=== PATIENT | male | born 1965 | race Caucasian/White ===

== ENCOUNTER 2017-04-15 12:22 | Inpatient (IN) | payer OTHER ==
[~2017-04-15] VITALS: Ht 185.4 cm; Wt 86.8 kg
[~2017-04-15 12:22] MED LIST: ALBU18HF INH; ASPI325T32 PO; ATOR40TA69 PO; BECL8.7A5 INH; BUPR100T15 PO; CLOP75TA28 PO; FLUO20CA25 PO; IPRA4AER INH; METO25TA6 PO; NITR0.4T6 SL; PANT40TA3 PO; PRAZ2CAP2 PO; SUCR1TAB PO
[2017-04-15 12:27] VITALS: BP 110/75; PULSE 92; RESP 18; O2SAT 98
--- NOTE | 2017-04-15 12:38 | ED.REPORT ---
HPI-Abd Pain M 40 and Over Date of Service Apr 15, 2017 ED Provider: Daren Ma MD Pt is a 51 year old male with a hx of COPD, emphysema, CAD, MRSA presenting to the ED from complaining of abdominal pain and fever onset this morning. He also complains of pain and burning on the left side of his thigh near the groin , which he reports is from something biting him last night. Denies any nausea, or any other symptoms at this time. Nursing Notes Stated Complaint: BELLY PAIN/FEVER Chief Complaint: General Complaint Nursing Notes Reviewed: Yes Allergies: Coded Allergies: No Known Allergies (Verified Allergy, Unknown, 02/18/16) Scheduled Albuterol/Ipratropium (Combivent Respimat Inhal [place]) 120 Spr/4 Gm Inhaler 1 PUFF INH QID prn also, not more than 6 puffs daily Atorvastatin Calcium (Atorvastatin Calcium) 80 Mg Tablet 80 MG PO DAILY Fluticasone/Vilanterol (Breo Ellipta 100-25 Mcg INH) 1 Each Aer.pow.ba 1 PUFF INHALATION DAILY Metoprolol Succinate ER (Metoprolol Succinate ER) 25 Mg Tab.er.24h 12.5 MG PO DAILY Pantoprazole DR (Pantoprazole DR) 40 Mg Tablet.dr 40 MG PO BID Prazosin (Prazosin) 2 Mg Capsule 2 MG PO DAILY Umeclidinium [place] (Incruse Ellipta) 62.5 Mcg/Actuation Blst.w.dev 1 PUFF INHALATION DAILY Scheduled PRN Albuterol Sulfate (Ventolin HFA Inhaler) 200 Puff/18 Gm Inhaler 2 PUFF INH Q4 PRN PRN For Wheezing Epinephrine (Epipen 2-Buzz) 0.3 Mg/0.3 Ml Auto.injct 0.3 ML INJ DIRECTED PRN PRN For Anaphyllaxis Nitroglycerin SL (Nitroglycerin SL) 0.4 Mg Tab.subl 0.4 MG SL Q5MIN PRN PRN For Chest Pain General Time Seen by MD: 12:37 Chief Complaint Abdominal pain Hx Obtained From: Patient Arrived By: Walk-in Sudden in Onset?: No Onset Occurred: 1 - 4 hours ago Symptom Duration: Since onset Progression since Onset: Constant Location: : Pelvis Quality: Painful Severity: Current: Severe Severity: Maximum: Severe Recent Healthcare: No recent doctor visit, No recent hospitalization Similar Sx Previous: No Past Medical History Past Medical History Myocardial Infarction MRSA Reports: Asthma, COPD, Coronary artery disease, GERD, Hyperlipidemia, Hypertension Past Surgical History neck surgery cardiac stent Smoking History Current Every Day Smoker Social History Alcohol Use: In recovery Drug Use: In recovery, Cocaine Other Social History: Good social support, Homeless Ambulatory Status Independent Review of Systems Constitutional: Reports: Fever, Denies: Chills Respiratory: Denies: Non-productive cough GI: Reports: Abdominal pain, Denies: Nausea, Vomiting Complete sys rev & neg: except as marked. Skin: Reports Rash, Reports Swelling Physical Exam Initial Vital Signs Vital Signs (First) Date Time Temp Pulse Resp B/P Pulse Ox O2 Delivery O2 Flow Rate FiO2 04/15/17 12:27 37.9 92 18 110/75 98 Room Air Initial VS: Reviewed Head / Eyes: Atraumatic, Normocephalic, PERRL ENT: Mucous membranes moist, Conjunctiva normal, No scleral icterus Extremities: Vascular intact, Neuro intact, No swelling, No tenderness Neurologic: Alert, Oriented, Nonfocal Psychiatric: Mood/affect normal, Behavior normal, Normal thought content General/Constitutional: Awake, Alert, No acute distress, Well appearing Respiratory / Chest: Breath sounds NL, Breath sounds = bilat, No respiratory distress, No rales, No rhonchi, No wheezing Cardiovascular: Heart rate NL, Regular rhythm, Heart sounds NL, Peripheral circulation NL Abdomen: Atraumatic, Soft, Non-tender Skin: Warm, Dry Erythematous tender mass left inguinal ligament. Scrotum not involved. Interpretation & Diagnostics Lab Results Interpretation Result Diagram: 04/15/17 1313 04/15/17 1313 Test 04/15/17 13:13 04/15/17 16:05 White Blood Count 10.8th/mm3 (3.8-10.1) Red Blood Count 4.93mil/mm3 (4.40-5.80) Hemoglobin 15.4g/dL (13.8-17.2) Hematocrit 45.1% (41.0-50.0) Mean Corpuscular Volume 91.5fL (81-100) Mean Corpuscular Hemoglobin 31.2pg (27.0-35.0) Mean Corpuscular Hemoglobin Concent 34.1% (32.0-37.0) Red Cell Distribution Width 13.9% (12.3-15.4) Platelet Count 239bil/L (150-400) Neutrophils (%) (Auto) 75.7% (40-74) Lymphocytes (%) (Auto) 13.4% (14-46) Monocytes (%) (Auto) 9.1% (4-12) Eosinophils (%) (Auto) 1.5% (0-5) Basophils (%) (Auto) 0.2% (0-3) Hold Purple Top Tube Received (Received) Hold Blue Top Tube Received (Received) Sodium Level 136mEq/L (134-144) Potassium Level 3.6mEq/L (3.5-5.2) Chloride Level 98mEq/L (97-108) Carbon Dioxide Level 21mmol/L (18-29) Blood Urea Nitrogen 16mg/dL (6-24) Creatinine 0.85mg/dL (0.76-1.27) Estimat Glomerular Filtration Rate 100mL/min (>59) Glucose Level 90mg/dL (60-99) Calcium Level 9.9mg/dL (8.5-10.1) Total Bilirubin 0.7mg/dL (0.0-1.2) Aspartate Amino Transf (AST/SGOT) 19U/L (0-50) Alanine Aminotransferase (ALT/SGPT) 18U/L (0-44) Alkaline Phosphatase 71U/L (25-150) Total Protein 7.1g/dL (6.4-8.4) Albumin 4.1g/dL (3.4-5.0) Hold Edson Top Tube Received (Received) Lactic Acid Level 0.8mmol/L (0.4-2.0) ECG Interpretation Time: 15:52 Interpreted by: ED physician Normal ECG Interpretation: Normal ECG w/ rate of... (91), Normal sinus rhythm X-Ray Chest Interpretation Chest Xray Interpretation: IMPRESSION: Negative chest. No acute cardiopulmonary process is evident. Dictated by: Saravanan Rosado M.D. on 04/15/2017 at 14:53 View: Portable, 1 view Interpretation / Wet Read by: Interpret - Radiologist Re-Eval/Medical Decision Time of Eval: 15:22 Patient Status: Condition improved Re-Evaluation/Progress Note: Used bedside ultrasound to visualize the erythematous area. No abscess visualized. He denies using any opiates. Discussed plan for admission. Pt understands and agrees with plan. 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: Will see patient, Agrees with plan, Accepts admit Counseled Regarding: Diagnosis, Lab results, Need for follow-up, When/why to return to ED Discharge & Departure Primary Impression: Soft tissue infection Disposition: ADMITTED TO HOSPITAL Vital Signs - All Vital Signs Date Time Temp Pulse Resp B/P Pulse Ox O2 Delivery O2 Flow Rate FiO2 04/15/17 16:22 37.1 94 20 95/61 94 Room Air 04/15/17 13:54 37.8 94 20 107/62 95 Room Air 04/15/17 12:27 37.9 92 18 110/75 98 Room Air )( All Prior VS Reviewed: Yes Condition: Improved Referrals: Varinder Díaz DO (PCP) Julio Attestation Portions of this note were transcribed by Tiffany Albert. I, Dr. Ma personally performed the history, physical exam and medical decision-making; I reviewed and confirmed the accuracy of the information in the transcribed note. Signed by: Julio Chamberlain, 04/15/2017 at 1800. copies to: Varinder Díaz Kirk H MD Apr 15, 2017 12:38 TIFFANY ALBERT Apr 15, 2017 12:43
[2017-04-15 13:54] VITALS: BP 107/62; PULSE 94; RESP 20; O2SAT 95
[2017-04-15] MEDS ORDERED: 0.9% Sodium Chloride 1,000 ML IV ONE ×2 (15:26→16:45)
[2017-04-15] MEDS ORDERED: Vancomycin Dose per Pharmacist XX ONE (15:30)
[2017-04-15] MEDS ORDERED: levoFLOXacin Inj 750 MG in IV Premix 1 EACH IV ONE (15:30)
[2017-04-15] MEDS ORDERED: Piperacillin-Tazo 3.375 Gm Inj 3.375 GM in Dextrose 5% Minibag Plus 50 ML IV ONE (15:30)
[2017-04-15] MEDS ORDERED: oxyCODONE-Acetamin 10-325 mg Tablet PO ONE (15:30)
[2017-04-15 15:36] LABS: BASOPHILS % (AUTO) 0.2 % (0-3); EOSINOPHILS % (AUTO) 1.5 % (0-5); MONOCYTES % (AUTO) 9.1 % (4-12); Mean Corpuscular Hemoglobin 31.2 pg (27.0-35.0); Mean Corpuscular Volume 91.5 fL (81-100); NEUTROPHILS % (AUTO) 75.7 % (40-74); Platelet Count 239 bil/L (150-400)
--- NOTE | 2017-04-15 16:07 | DRSVH ---
PROCEDURE: X-RAY CHEST ONE VIEW, PORTABLE ([id number]) INDICATIONS: fever TECHNIQUE: One view of the chest was acquired. COMPARISON: [facility], , CHEST 1VW (PORTABLE), 04/30/2014, 11:51. FINDINGS: Surgical changes and devices: Postoperative changes are present involving the lower cervical spine. Lungs and pleura: No pleural effusions or pneumothorax. Lungs are clear. Mediastinum: Mediastinal contours appear normal. Heart size is normal. Bones and chest wall: No suspicious bony lesions. Overlying soft tissues appear unremarkable. IMPRESSION: Negative chest. No acute cardiopulmonary process is evident. Dictated by: Saravanan Rosado M.D. on 04/15/2017 at 14:53 Approved by: Saravanan Rosado M.D. on 04/15/2017 at 15:05
[2017-04-15] MEDS ORDERED: ATOR80TA77 PO (16:17)
[2017-04-15] MEDS ORDERED: METO25TA99 PO (16:17)
[2017-04-15] MEDS ORDERED: EPIN0.3P2 INJ (16:17)
[2017-04-15] MEDS ORDERED: FLUT1AER INHALATION (16:17)
[2017-04-15] MEDS ORDERED: UMEC62.5 INHALATION (16:17)
[2017-04-15] MEDS ORDERED: Vancomycin Inj 1,750 MG in 0.9% Sodium Chloride 500 ML IV ONE (16:20)
[2017-04-15 16:22] VITALS: BP 95/61; PULSE 94; RESP 20; O2SAT 94
[2017-04-15] MEDS ORDERED: Alum-Mag Hydrox-Simeth 30 mL Suspension PO PRN (17:45)
[2017-04-15] MEDS ORDERED: Ondansetron 2 mg/mL 2 mL Inj IVPUSH PRN (17:45)
[2017-04-15 17:48] VITALS: BP 103/62; PULSE 82; RESP 20; O2SAT 96
[2017-04-15 18:05] LABS: APPEARANCE,URINE CLEAR (CLEAR,HAZY); COLOR,URINE DARK YELLOW (YELLOW); OCCULT BLOOD,URINE NEGATIVE (NEGATIVE); UROBILINOGEN,URINE 2 mg/dL (NORMAL)
--- NOTE | 2017-04-15 18:15 | NUR ---
per RN the vitals were taken just before arrival to the unit, were stable and to be checked on first round of assembler 1st shift. Addendum: 04/16/17 at 0804 by STEVEN GUERRERO CNA Amended: Links added.
[2017-04-15] MEDS ORDERED: Polyethylene Glycol (PEG) 17 Gm Powder PO PRN (18:20)
[2017-04-15] MEDS: Vancomycin Dose per Pharmacist XX SCH (18:25)
--- NOTE | 2017-04-15 18:48 | NUR ---
Admit Pt arrived to [facility] floor at 1814. Pain controlled in ED with Percocet and Tylenol. No c/o N/V. Blood, MRSA, and UA cultures pending. History of MRSA. IV Vanco running.
--- NOTE | 2017-04-15 19:00 | HP ---
[address] [address] HISTORY AND PHYSICAL PATIENT: ANDREW HEIN : 1965 MR#: [id number] ADMIT: 04/15/2017 JOB ID: [id number] PRIMARY CARE PROVIDER: Varinder Díaz DO. Patient admitted from ED, inpatient status, Red team. CHIEF COMPLAINT: Redness, left inguinal area. HISTORY OF PRESENT ILLNESS: This is a homeless, 51-year-old male who noted redness to his left inguinal area. He also noted a little lesion on his left thumb and right middle finger. The patient does have a history of MRSA. He denies any trauma to any of these areas and while he is abusing cocaine again, he denies any needles or injections at all at this time. He has had some fevers and chills today and tells me it looked all fine yesterday. He did not notice anything. No chest pain, nausea, vomiting, diarrhea, or abdominal pain. REVIEW OF SYSTEMS: Complete review of systems obtained. All pertinent positives as per HPI above, rest of review of systems are negative. PAST MEDICAL HISTORY: 1. COPD. 2. Sciatica. 3. GERD. 4. Hypertension. 5. History of [place], specifics not known. MEDICINES: 1. Ventolin inhalers p.r.n. 2. Combivent inhaler p.r.n. 3. EpiPen for bee stings. 4. Incruse Ellipta inhaler 2. 5. Breo Ellipta inhaler p.r.n. 6. Lipitor 80 daily. 7. Metoprolol succinate 12.5 daily. 8. Nitroglycerin p.r.n. chest pain. 9. Prazosin 2 mg daily. 10. Pantoprazole 40 mg daily. ALLERGIES: None. SOCIAL HISTORY: Is currently homeless, living in his car. He does smoke cigarettes. Denies any alcohol use. He has again relapsed and is using cocaine. Denies any needle use at this time. FAMILY HISTORY: Both mother and father of myocardial infarctions. PHYSICAL EXAMINATION: Temperature 37.8, blood pressure 107/62, O2 sats 94% on room air. Pulse 94. The patient is alert, uncomfortable but not in acute distress. Skin is warm and dry. He has a cellulitic process in the left inguinal area and a small focus in the middle of this without an obvious drainable focus there. This spreads out laterally, superiorly, inferiorly, and medially, and I have with black ink marked those margins. It is about 3-4 inches across the reddened area. On his left thumb and right middle finger, he has small raised red bump on both of those areas without drainage. Otherwise, the skin is warm and dry. Eyes are PERRLA. EOM intact. Mouth shows adequate hydration. No lesions. Cardiac is regular with no obvious murmur but difficult to hear in the ED. Lungs clear anteriorly with a few bibasilar rales heard posteriorly. Abdomen is soft, nonacute, and benign. Extremities showed no edema. Cranial nerves 2-12 are intact. No gross motor or sensory defects noted. DIAGNOSIS: 1. Acute cellulitis, left inguinal area, present on admission. Active. Will continue with the Levaquin, vancomycin started in the ED. Will get a nasal MRSA screen. I have applied ink zavaleta to the margins of this area. Blood cultures are pending. Will review in the morning. 2. Chronic obstructive pulmonary disease present on admission. Stable. Continue with patient's nebulizers and monitor closely. 3. Hypertension, present on admission. Stable. Continue with patient's metoprolol succinate and prazosin. 4. Coronary artery disease. Present on admission. Stable. Will continue with patient's metoprolol and Lipitor, p.r.n. nitroglycerin, and prazosin. 5. Gastroesophageal reflux disease present on admission. Stable. Continue patient's Protonix. 6. Substance abuse with cocaine present on admission. Active. Will request Social Service consultation. 7. Tobacco use disorder. Present on admission. Active. Will provide patient a nicotine patch. He has been counseled to quit smoking. The patient is being admitted to inpatient status, with expected length of stay greater than two midnights due to severity of presentation, duration of treatment and risk of adverse events. CODE STATUS: FULL CODE.
[2017-04-15 20:35] VITALS: BP 95/59; PULSE 82; RESP 16; O2SAT 95
[2017-04-15] MEDS: Alum-Mag Hydrox-Simeth 30 mL Suspension PO PRN (22:54)
[2017-04-15] MEDS: Ondansetron 2 mg/mL 2 mL Inj IVPUSH PRN (23:04)
[2017-04-15] MEDS: HYDROcodone-APAP 5-325 mg Tablet PO PRN (23:10)
[2017-04-16 00:13] VITALS: BP 104/66; PULSE 85; RESP 19; O2SAT 99
[2017-04-16] MEDS: Heparin 5,000 Unit/mL Inj SUBQ SCH ×4 (01:15→23:27)
--- NOTE | 2017-04-16 03:41 | NUR ---
Vomiting/Heartburn Pt. c/o heartburn, nausea and had brownish emesis a couple of times, MD aware, given prn maalox and IV zofran and norco for general pain, pt. started feeling better approx 0200 and was able to fall asleep, tolerating po intake and encouraged fluids, notable coughing with no secretions reported, VSS and afebrile, started on IV vanco, UA and blood culture still pending, hourly rounds, monitored closely, call light in reach at all times.
[2017-04-16 05:36] VITALS: BP 105/75; PULSE 93; RESP 18; O2SAT 94
[2017-04-16] MEDS: Vancomycin Inj 1,500 MG in 0.9% Sodium Chloride 500 ML IV SCH ×2 (05:36→20:10)
[2017-04-16] MEDS ORDERED: 0.9% Sodium Chloride 100 ML ONE ×2 (05:41→09:14)
[2017-04-16 06:19] LABS: BASOPHILS % (AUTO) 0.2 % (0-3); EOSINOPHILS % (AUTO) 1.2 % (0-5); MONOCYTES % (AUTO) 10.3 % (4-12); Mean Corpuscular Hemoglobin 30.4 pg (27.0-35.0); Mean Corpuscular Volume 93.4 fL (81-100); NEUTROPHILS % (AUTO) 74.4 % (40-74); Platelet Count 191 bil/L (150-400)
--- NOTE | 2017-04-16 07:23 | PCM.PNMED ---
Subjective Date of Service Apr 16, 2017 Subjective Did pretty well overnight, did have some heart burn, we need to order his protonix. Behavior OK per nursing. Exam Vital Signs Vital Sign - Last Date Time Temp Pulse Resp B/P Pulse Ox O2 Delivery O2 Flow Rate FiO2 04/16/17 05:36 36.9 93 18 105/75 94 Room Air Intake and Output 04/15/17 04/15/17 04/16/17 Cumulative From/Thru 15:00 23:00 07:00 04/15/17 12:27 - 04/16/17 06:26 Intake Total 3134 ml 636 ml 3770 ml Output Total 800 ml 800 ml Balance 3134 ml -164 ml 2970 ml Intake Oral 636 ml 636 ml 1272 ml IV Total 2498 ml 2498 ml Output Urine Total 600 ml 600 ml Emesis 200 ml 200 ml # Voids 1 1 Exam Skin; Left groin cellulitic area little less red and angre with possible central area developing small drainable abscess. The erythema did extend a bit beyond the ink zavaleta applied yesterday, new ink zavaleta applied today. No purulence noted. CV; nu murmur Resp; corse otherwise clear GI; soft non acute benign extremities; L thumb and R middle finger lesions dry and healing, no drainage.( 5 mm bump raised) Lab and Diagnostics Result Diagram: 04/16/1752804/16/17528 Assessment & Plan 1. Acute cellulitis, left inguinal area, present on admission. Improving. -for now continue with Vancomycin (day 2) and change the levaquin to ceftriaxone (day 1) -nasal MRSA screen negative. -I have applied ink zavaleta to the margins of this area yesterday and today -Blood cultures are pending. 2. Chronic obstructive pulmonary disease present on admission. Stable. -Continue with patient's nebulizers and monitor closely. 3. Hypertension, present on admission. Stable. -Continue with patient's metoprolol succinate and prazosin. 4. Coronary artery disease. Present on admission. Stable. -continue with patient's metoprolol and Lipitor, p.r.n. nitroglycerin, and prazosin. 5. Gastroesophageal reflux disease present on admission. Stable. -resume patient's Protonix. 6. Substance abuse with cocaine present on admission. Active. -request Social Service consultation. 7. Tobacco use disorder. Present on admission. Active. -provide patient a nicotine patch. -has been counseled to quit smoking. Idania Mallory MD Apr 16, 2017 07:23
[2017-04-16] MEDS: Vancomycin Dose per Pharmacist XX SCH (08:30)
[2017-04-16] MEDS: Pantoprazole 20 mg ER24 Tablet PO SCH (09:17)
[2017-04-16] MEDS: cefTRIAXone Inj 2,000 MG in Dextrose 5% Minibag Plus 50 ML IV SCH (09:17)
--- NOTE | 2017-04-16 10:04 | NUR ---
Car Patient's car at Urgent care. Security notified. 2017 Rashid Watson G4 Blue with broken passenger window.
[2017-04-16] MEDS: Alum-Mag Hydrox-Simeth 30 mL Suspension PO PRN (10:24)
--- NOTE | 2017-04-16 10:25 | NUR ---
Heartburn Patient reported heartburn. Maalox given. Patient requesting TUMS. Patient repositions self for comfort. Call light and tray table within reach. Will continue to monitor patient hourly.
[2017-04-16 12:43] VITALS: BP 113/72; PULSE 84; RESP 19; O2SAT 98
[2017-04-16] MEDS: Ondansetron 2 mg/mL 2 mL Inj IVPUSH PRN (12:48)
[2017-04-16] MEDS: HYDROcodone-APAP 5-325 mg Tablet PO PRN ×2 (13:05→18:43)
--- NOTE | 2017-04-16 15:45 | NUR ---
Social Work- Initial Assessment/Multi-Disciplinary Rounds Data: EMR reviewed. Pt is a 51 year old male admitted 04/15/17 for inguinal cellulitis per H&P. Pt's PCP is Varinder Díaz DO. Pt's insurance is [employer]. Pt's NOK is Priyanka Aranda, . Pt's readmit risk score is 2 low risk. Per multi-disciplinary rounds, pt will require abx at discharge. It is unclear whether this will be IV or PO. SW recommends that pt receive PO abx. SW asked to see pt due to homelessness and cocaine use. SW met with pt at bedside regarding discharge plan. Pt alert and oriented x3. Pt's capacity for self-care assessed. Pt is able to work and able to drive. Pt has history of employment and is clearly knowledgeable regarding existing resources in [facility]. Pt was able to coordinate and complete his own inpt treatment assessment. Pt is capable of self care, even if he does not have the resources at this time. Pt is currently homeless and living in his car. Pt has a history of cocaine use. Pt recently relapsed after his relationship ended. Prior to this, pt was sober for three years. Pt completed inpt treatment at [facility] 3 years ago. 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 Pt reports a few days of employment at [employer] but pt reports that he wasn't able to hold a job there. Pt declined conversation with CDP here at [facility] as he has already completed an inpt treatment assessment and is waiting for a bed date. He has been trying to enter inpt treatment at [facility] in [place], [place]. Pt was supposed to contact [facility] but then he was hospitalized. ANTONIO connected [facility] to the phone in pt's room for pt to check on his bed date. Pt reports that he will get a bus voucher from [employer] or he will drive himself to inpt treatment if he can get gas. Pt appears very knowledgeable regarding services. ANTONIO worked to problem solve with pt regarding obtaining pt's abx or other necessary medications at discharge. Pt reports that he has no money and the only way he would be able to obtain his prescriptions is if they were 100% covered by [employer]. Pt reports that he gets $100 from [employer] funds each month. Pt reports that this is his only income at this time. Pt reports that his credit cards are maxed out. Pt denies that his sister would be able to provide any money. SW discussed $4 medication list from [facility]. Pt states he can't afford it. Pt denies that his sister would want to loan him $4. Pt states that he doesn't have friends that would be willing to loan or give him any money. Pt again denies that he has any money available in his bank account. Pt anticipated to discharge back to his car with an eventual bed date. ANTONIO recommends PO abx at discharge if able. SW will continue to follow. Assessment: Pt who is independent at baseline and is currently homeless. Plan: Pt is working on obtaining a bed date at [facility]. Pt states that funds are a major concern and he would not have money for prescriptions at discharge. ANTONIO will continue to work with pt regarding funding options. Pt anticipated to discharge back to his car with an eventual bed date at [facility]. ANTONIO recommends PO abx at discharge if able. SW will continue to follow. MORGAN Barakat Addendum: 04/16/17 at 1602 by CARRIE ALFONSO SS Amended: Links added.
[2017-04-16 16:07] VITALS: BP 94/59; PULSE 84; RESP 16; O2SAT 95
[2017-04-16] MEDS ORDERED: levoFLOXacin Inj 750 MG in IV Premix 1 EACH IV SCH (17:00)
[2017-04-16 20:27] VITALS: BP 104/68; PULSE 86; RESP 16; O2SAT 93
[2017-04-16] MEDS: Albuterol-Ipratropium 3 mL Inhalation Solution NEB SCH (21:16)
[2017-04-16 21:17] VITALS: PULSE 83; RESP 18; O2SAT 94
--- NOTE | 2017-04-16 22:38 | NUR ---
INTEG; C/o groin area pain. States pain rx brings pain down and "then it's right back". Area red swollen and painful.
[2017-04-17] MEDS: HYDROcodone-APAP 5-325 mg Tablet PO PRN ×6 (02:02→23:14)
[2017-04-17] MEDS ORDERED: 0.9% Sodium Chloride 100 ML ONE (02:17)
[2017-04-17 04:26] VITALS: BP 99/57; PULSE 76; RESP 16; O2SAT 95
[2017-04-17] MEDS ORDERED: Albuterol 2.5 mg/3 mL Inhalation Solution NEB PRN (07:00)
[2017-04-17] MEDS: Albuterol-Ipratropium 3 mL Inhalation Solution NEB SCH ×2 (08:19→11:00)
[2017-04-17 08:20] VITALS: PULSE 79; RESP 16; O2SAT 98
[2017-04-17] MEDS: Vancomycin Dose per Pharmacist XX SCH (08:30)
[2017-04-17] MEDS: Heparin 5,000 Unit/mL Inj SUBQ SCH ×3 (10:08→23:15)
[2017-04-17] MEDS: Pantoprazole 20 mg ER24 Tablet PO SCH (10:09)
[2017-04-17] MEDS: cefTRIAXone Inj 2,000 MG in Dextrose 5% Minibag Plus 50 ML IV SCH (10:25)
[2017-04-17] MEDS: Vancomycin Inj 1,500 MG in 0.9% Sodium Chloride 500 ML IV SCH ×2 (10:25→22:23)
[2017-04-17] MEDS ORDERED: Albuterol-Ipratropium 120 Spray 4 Gm Inhaler INHALATION SCH (11:30)
--- NOTE | 2017-04-17 12:00 | NUR ---
Respiratory Pt declined Tx at this time. Stated he does not want scheduled neb's, he wants inhaler prn. Pt stated he will call if prn neb is wanted.
[2017-04-17 13:04] VITALS: BP 108/69; PULSE 78; RESP 18; O2SAT 95
[2017-04-17] MEDS: Fluticasone-Salmererol 250-50 Inhaler INHALATION SCH ×2 (13:39→20:21)
[2017-04-17] MEDS: MeTOProlol XL 25 mg ER24 Tablet PO SCH (13:40)
--- NOTE | 2017-04-17 15:08 | CONS ---
[address] [address] CONSULTATION REPORT PATIENT: ANDREW HEIN : 1965 MR#: [id number] ADMIT: 04/15/2017 JOB ID: [id number] DATE OF SERVICE: 04/17/2017 CHIEF COMPLAINT/IDENTIFICATION: Dr. Rodrigues has asked me to see this man regarding possible left groin abscess. HISTORY OF PRESENT ILLNESS: The patient presented to the emergency department yesterday complaining of pain from insect bites on his fingers as well as on his left inguinal area. In the emergency department he was evaluated with an ultrasound to look for an abscess and no abscess was found. He was admitted on IV antibiotics and I am asked to see him regarding taking him to the OR for surgical drainage. PAST MEDICAL HISTORY: Per admission history and physical he has a history of COPD, sciatica, GERD, hypertension, [place], active cocaine abuse, and MRSA. MEDICATIONS: None as per admission physical. SOCIAL HISTORY: Living in his car, smokes cigarettes, negative daily alcohol use. FAMILY HISTORY: Noncontributory. REVIEW OF SYSTEMS: Noncontributory. PHYSICAL EXAMINATION: Vital signs recorded in the chart. Within normal limits. Directed examination shows erythema in the right groin, previously marked yesterday evening by Dr. Mallory. Along the inguinal crease there is a raised erythematous tender area. I do not appreciate fluctuance. According to the patient this appears similar to what it did last night. LABORATORY DATA: White count was 11.5 yesterday. IMPRESSION AND PLAN: Clinically this appears to be a soft tissue infection but at this point, given the negative ultrasound and the examination, I do not think there is anything to be drained surgically. I would continue intravenous antibiotics. General Surgery will follow him and if in another day or two we are not seeing marked improvement re-imaging looking for a drainable abscess would be appropriate.
--- NOTE | 2017-04-17 18:23 | NUR ---
cellulitis area of erythema has continued to spread some though out shift, and now there is a pustule visible. pt remains afebrile. VSS. good appetite
--- NOTE | 2017-04-17 19:01 | PCM.PNMED ---
Subjective Date of Service Apr 17, 2017 Subjective The patient continues to complain of pain and swelling in the left inguinal area. He states that it does not feel any better. He has no other new complaints. Exam Vital Signs Vital Sign - Last Date Time Temp Pulse Resp B/P Pulse Ox O2 Delivery O2 Flow Rate FiO2 04/17/17 13:04 36.7 78 18 108/69 95 Room Air Intake and Output 04/16/17 04/16/17 04/17/17 Cumulative From/Thru 15:00 23:00 07:00 04/15/17 12:27 - 04/17/17 05:30 Intake Total 707 ml 1344 ml 857 ml 6678 ml Output Total 1875 ml 700 ml 3375 ml Balance 707 ml -531 ml 157 ml 3303 ml Intake Oral 1344 ml 857 ml 3473 ml IV Total 707 ml 3205 ml Output Urine Total 1875 ml 700 ml 3175 ml Emesis 200 ml # Voids 3 4 Exam General: Patient is lying in bed in minimal distress if he is not moving. However, his left inguinal area is extremely tender with any contact or movement. HEENT: Head is atraumatic and normocephalic. Eyes: Pupils are equally round and reactive to light and accommodation. Extraocular muscles are intact. Sclera are white, anicteric. Subconjunctival mucosa is pink. Ears and nose are unremarkable. Oropharynx: There is no mucosal lesions, there is no thrush, there is no pharyngitis. Neck: Is supple, there are no nodes, or masses or tenderness. Chest: Is clear to auscultation and percussion. There are no rales, rhonchi, wheezes or rubs. Heart: Rate, rhythm is regular. There is no murmur, rub or gallop. Abdomen: Good bowel sounds are present. Abdomen is soft, nontender, no organomegaly or masses were appreciated. Extremities: There is an area of fluctuant mass in the left inguinal area which is exquisitely tender with any palpation. The area of cellulitis has not receded, however it also has not worsened. Neurologic: There are no focal neurological deficits. Cranial nerves II through XII are intact. There are no sensory or motor deficits. Psychiatric: Patients mood is calm and shows no sign of agitation. Genital: Deferred Rectal: Deferred Lab and Diagnostics Result Diagram: 04/16/1752804/16/17528 Microbiology Urine and blood cultures are negative to date Name: ANDREW HEIN Age/Sex: 51/M Attend Dr: Perfecto Rodrigues Acct: [id number] Unit: [id number] Status: ADM IN Location: [facility] [place] 1006-1 Re04/15/17 Disch: Specimen: [id number] Collected: 04/16/17 Status: PARVIZ Req#: [id number] Received: 04/17/17 Source: STOOL Sp Desc : Subm Dr: Idania Mallory MD Ordered: Trena PACHECO DNA PCR Comments: Collected by Nurse/Unit? Y/N Y Procedure Result Verified Site Microbiology SEGUNDO C DIF PCR STOOL Final 04/17/17-649 CDIF DNA BY PCR NEGATIVE REFERENCE INTERVAL NEGATIVE Name: ANDREW HEIN Age/Sex: 51/M Attend Dr: Idania Mallory Acct: [id number] Unit: [id number] Status: ADM IN Location: [facility] [place] 1006-1 Re04/15/17 Disch: Specimen: [id number] Collected: 04/15/17 Status: COMP Req#: [id number] Received: 04/15/17 Source: NOSE Sp Desc : Subm Dr: Idania Mallory MD Ordered: SEGUNDO MRSA PCR Comments: Collected by Nurse/Unit? Y/N Y Procedure Result Verified Site Microbiology SEGUNDO MRSA PCR Final 04/15/17-2237 MRSA BY PCR NOT DETECTED REFERENCE INTERVAL NOT DETECTED X-Rays, CTs and MRIs PROCEDURE: X-RAY CHEST ONE VIEW, PORTABLE ([id number]) INDICATIONS: fever TECHNIQUE: One view of the chest was acquired. COMPARISON: [facility], , CHEST 1VW (PORTABLE), 04/30/2014, 11:51. FINDINGS: Surgical changes and devices: Postoperative changes are present involving the lower cervical spine. Lungs and pleura: No pleural effusions or pneumothorax. Lungs are clear. Mediastinum: Mediastinal contours appear normal. Heart size is normal. Bones and chest wall: No suspicious bony lesions. Overlying soft tissues appear unremarkable. IMPRESSION: Negative chest. No acute cardiopulmonary process is evident. Dictated by: Saravanan Rosado M.D. on 04/15/2017 at 14:53 Approved by: Saravanan Rosado M.D. on 04/15/2017 at 15:05 Assessment & Plan The patient is a 51-year-old homeless white male who has been sleeping in his automobile when he noticed in 1 day redness and swelling developing on his left thumb, right middle finger and left inguinal area. He denied any trauma to these areas and denies using intravenous drugs. He does admit to using and abusing cocaine which may or may not have methamphetamine cut into it. He also does admit to having a history of MRSA. Patient developed fever and chills the day of admission which developed in less than one day, as he states he felt fine the day prior to admission. Patient was evaluated in the emergency room where an ultrasound guided needle aspiration was attempted but was unsuccessful. The patient was then admitted to the hospitalist service for further evaluation and treatment. 1. Acute cellulitis, left inguinal area, present on admission. This is not improving and there appears to be an abscess developing. -We will continue Vancomycin (day 2) and ceftriaxone (day 1) -Patient's nasal MRSA screen was negative. However, due to the history of MRSA we will continue vancomycin pending I&D and culture results. -I have consulted Dr. Kale Carson general surgery. He believes it is too early to attempt incision and drainage as of yet and general surgery will follow. I have ordered warm compresses to allow the infection to come to a head. -Blood cultures are pending. 2. Chronic obstructive pulmonary disease present on admission. Stable. -Continue with patient's home medication and monitor closely. 3. Hypertension, present on admission. Stable. -Continue with patient's metoprolol succinate and prazosin. 4. Coronary artery disease. Present on admission. Stable. -We will continue with patient's metoprolol and Lipitor, p.r.n. nitroglycerin, and prazosin. 5. Gastroesophageal reflux disease present on admission. Stable. -We will continue patient's Protonix. 6. Substance abuse with cocaine present on admission. Active. -We have requested Social Service consultation. 7. Tobacco use disorder. Present on admission. Active. -We have provided the patient with a nicotine patch. -The patient has been counseled to quit smoking. Pain Evaluation: Adequate Pain Control GI Prophylaxis: Proton Pump Inhibitor VTE Prophylaxis: Sub-Q Heparin (Unfractionated) VTE Mechanical Devices: Intermittant Pneumatic CD Resuscitation Status: CPR: Attempt Resuscitation Perfecto Rodrigues MD Apr 17, 2017 19:01
[2017-04-17] MEDS ORDERED: Albuterol-Ipratropium 3 mL Inhalation Solution NEB PRN (19:20)
[2017-04-17 19:31] VITALS: PULSE 85; RESP 16; O2SAT 97
[2017-04-17 19:47] VITALS: BP 104/69; PULSE 56; RESP 20; O2SAT 99
[2017-04-17] MEDS: Pantoprazole 40 mg ER24 Tablet PO SCH (20:20)
--- NOTE | 2017-04-17 21:25 | NUR ---
Respiratory At start of shift patient began to experience some persistent coughing, and difficulty catching breath. Hospitalist notified, and has ordered for a neb treatment to be administered. Have also requested cough drops, but have not received an order for any at this time. After neb treatment, patient stated some relief. Would like to clarify inhaler medications with MD tomorrow because he does not feel that they are his correct home meds. Will continue to monitor and continue Q1 hour checks.
--- NOTE | 2017-04-18 02:00 | NUR ---
CARE TRANSFERED; to me by Fabiola Leung rn. Addendum: 04/18/17 at 0201 by CHEMA HOLGUIN RN At 2300.
--- NOTE | 2017-04-18 04:08 | NUR ---
PSYCH/PAIN; pt slept a good part of the night. Pain rx effective.
[2017-04-18 04:09] VITALS: BP 111/72; PULSE 78; RESP 18; O2SAT 97
[2017-04-18] MEDS: HYDROcodone-APAP 5-325 mg Tablet PO PRN ×4 (04:16→20:14)
--- NOTE | 2017-04-18 05:02 | NUR ---
RESP; pt coughing off and on. Requested cough drops. Hospitalist "tyrone paged". No further orders noted.
[2017-04-18 05:31] LABS: BASOPHILS % (AUTO) 0.3 % (0-3); EOSINOPHILS % (AUTO) 2.6 % (0-5); MONOCYTES % (AUTO) 9.5 % (4-12); Mean Corpuscular Hemoglobin 30.7 pg (27.0-35.0); Mean Corpuscular Volume 93.5 fL (81-100); Platelet Count 179 bil/L (150-400)
[2017-04-18 05:51] LABS: ERYTHROCYTE SEDIMENTATION RATE 31 mm/hr (0-30)
[2017-04-18 06:04] LABS: Magnesium 1.8 mg/dL (1.6-2.6)
[2017-04-18] MEDS ORDERED: Vancomycin Serum Trough XX ONE (07:30)
[2017-04-18] MEDS: cefTRIAXone Inj 2,000 MG in Dextrose 5% Minibag Plus 50 ML IV SCH (07:49)
[2017-04-18 08:16] VITALS: BP 94/57; PULSE 73; RESP 20; O2SAT 93
[2017-04-18] MEDS: Fluticasone-Salmererol 250-50 Inhaler INHALATION SCH ×2 (09:43→20:14)
[2017-04-18] MEDS: Tiotropium 18mcg/Cap 5 Capsule Inhaler Kit INHALATION SCH (09:43)
[2017-04-18 09:50] VITALS: BP 110/73; PULSE 82
[2017-04-18] MEDS: Heparin 5,000 Unit/mL Inj SUBQ SCH ×2 (09:52→15:36)
[2017-04-18] MEDS: Pantoprazole 40 mg ER24 Tablet PO SCH ×2 (09:52→20:11)
[2017-04-18] MEDS: MeTOProlol XL 25 mg ER24 Tablet PO SCH (09:52)
[2017-04-18] MEDS: Vancomycin Dose per Pharmacist XX SCH (09:53)
[2017-04-18] MEDS: Vancomycin Inj 1,500 MG in 0.9% Sodium Chloride 500 ML IV SCH ×2 (10:07→20:17)
[2017-04-18] MEDS ORDERED: Benzocaine-Menthol Lozenge 2/Pkg PO PRN (10:10)
[2017-04-18] MEDS ORDERED: Lidocaine 1%/Epi 1:100,000 30 mL MDV ONE (10:24)
--- NOTE | 2017-04-18 11:05 | PCM.PHAPRO ---
[facility] Dosing - Vancomycin Indication: Inguinal cellulitis w/ abscess Current dose: 1,500 mg every 12 hours Goal trough: 10-15 (would consider higher level w/ positive cultures) Pt wt: 79.9 kg SCr: 0.85 (stable) Cultures: MRSA swab (-), blood (-) x 2 days, urine (-), procal: 0.04 Vancomycin level: 12.8 (drawn 2.5 hours early) Additional ABX: Ceftriaxone A/P: -Vancomycin level was drawn early but estimated level is still within goal for treatment (~12.5). No current changes in labs. Has hx of MRSA infection but current cultures are negative. -Will continue current dose of vancomycin 1,500 mg every 12 hours. Will continue to monitor renal fx. Thanks, Saeid Joaquin, PharmD Saeid Joaquin Apr 18, 2017 11:05
--- NOTE | 2017-04-18 11:05 | PCM.PNSURG ---
Subjective Date of Service: Apr 18, 2017 Visit Information: Reason for Visit Inguinal Cellulitis Surgery/Surgery Date Post-Op Day # Date of Admission: Apr 15, 2017 at 17:45 Hospital Day #4 Subjective: States that left groin pain is persistent and unremitting, pain medication is not helping. Reports that left groin wound has coalesced and has formed a Duncan as of yesterday evening. Not ambulating secondary to left groin pain. Postop General: Other (as above) Gastrointestinal: Good Appetite, Tolerating Oral Feedings Pain Management: PO Postop Activity: Ambulating in Room Only Objective Objective Left groin with erythema extending mcc down the thigh, induration around a raised pustule approximately 1 cm in diameter, surrounded by an approximately 7- 8 cm area of induration. Vital Sign- Last 8 Hours Date Time Temp Pulse Resp B/P Pulse Ox O2 Delivery O2 Flow Rate FiO2 04/18/17 09:50 82 110/73 04/18/17 08:16 37.1 73 20 94/57 93 Room Air 04/18/17 04:09 36.7 78 18 111/72 97 Room Air Intake and Output- Last 8 Hour 04/18/17 Cumulative From/Thru 07:00 04/15/17 12:27 - 04/18/17 05:36 Intake Total 1400 ml 9900 ml Output Total 900 ml 5275 ml Balance 500 ml 4625 ml Intake Oral 800 ml 6095 ml IV Total 600 ml 3805 ml Output Urine Total 900 ml 5075 ml Emesis 200 ml # Voids 1 # Bowel Movements 0 3 General: Alert, Cooperative, No Acute Distress Lungs: Clear to Auscultation Heart: Regular Rate/Rhythm Neuro: Normal Speech Catheters: None Result Diagram: 04/18/17 0452 04/18/17 0452 Assessment & Plan Impression Primary diagnoses: Left groin abscess Other chronic conditions: 1. COPD. 2. Sciatica. 3. GERD. 4. Hypertension. 5. History of [place] 6. Cocaine use 7. Daily cigarette smoker Problems: Plan 1. Left groin abscess was I&D to at the bedside. Culture was sent. 2. The dressing will be changed twice a day. Pain Management: Oral analgesic VTE Prophylaxis: Sub-Q Heparin (Unfractionated) Resuscitation Status: CPR: Attempt Resuscitation Ramiro Becker PA-C Apr 18, 2017 11:05
--- NOTE | 2017-04-18 11:10 | PCM.PROC ---
Procedure Note Date of Service: Apr 18, 2017 Pre Procedure Diagnosis: Primary diagnoses: Left groin abscess Other chronic conditions: 1. COPD. 2. Sciatica. 3. GERD. 4. Hypertension. 5. History of [place] 6. Cocaine use 7. Daily cigarette smoker Post Procedure Diagnosis: Same Procedure: I&D Provider and Biometrics Experimentalist: Ramiro Becker PA-C Indication for Procedure: Abscess Findings: Approximately 5-10 mL of purulent material was drained. Procedural Analgesia: Local Procedure Details: The wound was prepped with ChloraPrep solution and draped in a sterile fashion. The skin surrounding the pustule was infiltrated with approximately 4 mL of 1 % lidocaine with epinephrine. An incision was made with a #11 scalpel. Approximately 5-10 mL of purulent material was drained. A culture was obtained and sent for culture and sensitivity and Gram stain. The subcutaneous tissues of the wound were probed, there were no undrained pockets. The wound was irrigated with 300 mL of normal saline solution. The wound was packed with half inch Nu Gauze and a sterile dressing was applied. There was no bleeding at the end of the procedure. The procedure was well-tolerated. Specimen: Wound culture and Gram stain Post Procedure Plan: The wound will be repacked and dressing will be changed twice a day. Ramiro Becker PA-C Apr 18, 2017 11:10
[2017-04-18] MEDS ORDERED: Lidocaine 1%-Epi 1:100,000 50 mL Inj NERVEBLOCK ONE (11:20)
--- NOTE | 2017-04-18 11:21 | NUR ---
Social Work: Multi-Disciplinary Rounds D: Per MD in multi-disciplinary rounds, pt's abscess to be drained today in OR. Pt likely to remain hospitalized for 2-3 more days. Pt anticipated to discharge back to his car with an eventual bed date at [facility]. Pt provided with phone number for [facility]. ANTONIO discussed pt's ability to pay for rx at discharge. stated they will work with SW to coordinate rx prices at discharge. ANTONIO recommends POABX at discharge if able. SW will continue to follow. A: Pt who is independent at baseline and is currently homeless. P: Pt is working on obtaining a bed date at in treatment. Pt states that funds are a major concern and he would not have money for prescriptions at discharge. ANTONIO will continue to work with pt regarding funding options. Pt anticipated to discharge back to his car with an eventual bed date at [facility]. ANTONIO recommends POABX at discharge if able. ANTONIO will continue to follow. MORGAN Martinez
--- NOTE | 2017-04-18 17:02 | NUR ---
Wound note Wound care orders received on 51 yo male with left groin I&D performed today by PA at bedside. Presents with erythematous medial thigh and groin with a 2 cm incision which has a depth of 3 cms, wound cleaned with q tip and hydrogen peroxide and packed with packing strip and covered with tape. Wound is stable, erythema is resolving,will change dressing tomorrow.
--- NOTE | 2017-04-18 17:57 | PCM.PNMED ---
Subjective Date of Service Apr 18, 2017 Subjective She is now feeling better after incision and drainage of the left groin abscess. He states that he is still in considerable amount of pain but is much relieved. The area of infection on the left thumb and right middle finger have improved as well. Patient has no new complaints. Exam Vital Signs Vital Sign - Last Date Time Temp Pulse Resp B/P Pulse Ox O2 Delivery O2 Flow Rate FiO2 04/18/17 09:50 82 110/73 04/18/17 08:16 37.1 20 93 Room Air Intake and Output 04/17/17 04/17/17 04/18/17 Cumulative From/Thru 15:00 23:00 07:00 04/15/17 12:27 - 04/18/17 05:36 Intake Total 1822 ml 1400 ml 9900 ml Output Total 1000 ml 900 ml 5275 ml Balance 822 ml 500 ml 4625 ml Intake Oral 1822 ml 800 ml 6095 ml IV Total 600 ml 3805 ml Output Urine Total 1000 ml 900 ml 5075 ml Emesis 200 ml # Voids 1 # Bowel Movements 0 0 3 Exam General: Patient is lying in bed in less distress now that he has had the left inguinal abscess incised and drained. However, he is still uncomfortable. HEENT: Head is atraumatic and normocephalic. Eyes: Pupils are equally round and reactive to light and accommodation. Extraocular muscles are intact. Sclera are white, anicteric. Subconjunctival mucosa is pink. Ears and nose are unremarkable. Oropharynx: There are no mucosal lesions, there is no thrush , there is no pharyngitis. Neck: Is supple, there are no nodes, or masses or tenderness. Chest: Is clear to auscultation and percussion. There are no rales, rhonchi, wheezes or rubs. Heart: Rate, rhythm is regular. There is no murmur, rub or gallop. Abdomen: Good bowel sounds are present. Abdomen is soft, nontender, no organomegaly or masses were appreciated. Extremities: The previous area of fluctuant mass has been incised and drained and there is a dressing which is intact over this area. The area of cellulitis has worsened slightly today. However after the incision and drainage there is no worsening of the cellulitis and it appears to have receded slightly since earlier this morning. The small abscess/infection on the left thumb and right middle finger have improved slightly. Neurologic: There are no focal neurological deficits. Cranial nerves II through XII are intact. There are no sensory or motor deficits. Psychiatric: Patients mood is calm and shows no sign of agitation. Genital: Deferred Rectal: Deferred Lab and Diagnostics Result Diagram: 04/18/1745104/18/17451 Microbiology Urine and blood cultures are negative to date. A wound culture was obtained today and is pending. Name: ANDREW HEIN Age/Sex: 51/M Attend Dr: Perfecto Rodrigues Acct: [id number] Unit: [id number] Status: ADM IN Location: [facility] [place] 1006-1 Re04/15/17 Disch: Specimen: [id number] Collected: 04/16/17 Status: COMP Re#: [id number] Received: 04/17/17 Source: STOOL Sp Desc : Subm Dr: Idania Mallory MD Ordered: Trena PACHECO DNA PCR Comments: Collected by Nurse/Unit? Y/N Y Procedure Result Verified Site Microbiology SEGUNDO C DIF PCR STOOL Final 04/17/17-649 CDIF DNA BY PCR NEGATIVE REFERENCE INTERVAL NEGATIVE Name: ANDREW HEIN Age/Sex: 51/M Attend Dr: Idania Mallory Acct: [id number] Unit: [id number] Status: IN Location: [facility] 1006-1 Re04/15/17 Disch: Specimen: [id number] Collected: 04/15/17-1844 Status: COMP Req#: [id number] Received: 04/15/17 Source: NOSE Sp Desc : Subm Dr: Idania Mallory MD Ordered: SEGUNDO MRSA PCR Comments: Collected by Nurse/Unit? Y/N Y Procedure Result Verified Site Microbiology ESGUNDO MRSA PCR Final 04/15/17-2237 MRSA BY PCR NOT DETECTED REFERENCE INTERVAL NOT DETECTED X-Rays, CTs and MRIs PROCEDURE: X-RAY CHEST ONE VIEW, PORTABLE ([id number]) INDICATIONS: fever TECHNIQUE: One view of the chest was acquired. COMPARISON: [facility], , CHEST 1VW (PORTABLE), 04/30/2014, 11:51. FINDINGS: Surgical changes and devices: Postoperative changes are present involving the lower cervical spine. Lungs and pleura: No pleural effusions or pneumothorax. Lungs are clear. Mediastinum: Mediastinal contours appear normal. Heart size is normal. Bones and chest wall: No suspicious bony lesions. Overlying soft tissues appear unremarkable. IMPRESSION: Negative chest. No acute cardiopulmonary process is evident. Dictated by: Saravanan Rosado M.D. on 04/15/2017 at 14:53 Approved by: Saravanan Rosado M.D. on 04/15/2017 at 15:05 Assessment & Plan The patient is a 51-year-old homeless white male who has been sleeping in his automobile when he noticed in 1 day redness and swelling developing on his left thumb, right middle finger and left inguinal area. He denied any trauma to these areas and denies using intravenous drugs. He does admit to using and abusing cocaine which may or may not have methamphetamine cut into it. He also does admit to having a history of MRSA. Patient developed fever and chills the day of admission which developed in less than one day, as he states he felt fine the day prior to admission. Patient was evaluated in the emergency room where an ultrasound guided needle aspiration was attempted but was unsuccessful. The patient was then admitted to the hospitalist service for further evaluation and treatment. 1. Acute cellulitis with abscess, left inguinal area, present on admission. Cellulitis was worsening this morning prior to incision and drainage. -We will continue Vancomycin (day 3) and ceftriaxone (day 2) -Patient's nasal MRSA screen was negative. However, due to the history of MRSA , as well as left thumb and right middle finger infection, we will continue vancomycin pending I&D and culture results. -I have consulted Dr. Kale Carson general surgery. Surgical PA Ramiro Becker was kind enough to see the patient today and perform an incision and drainage with irrigation of the wound. Cultures were obtained and are pending. -The wound care team saw the patient and irrigated the wound is well. -Blood cultures are pending. 2. Chronic obstructive pulmonary disease present on admission. Stable. -Continue with patient's home medication and monitor closely. 3. Hypertension, present on admission. Stable. -Continue with patient's metoprolol succinate and prazosin. 4. Coronary artery disease. Present on admission. Stable. -We will continue with patient's metoprolol and Lipitor, p.r.n. nitroglycerin, and prazosin. 5. Gastroesophageal reflux disease present on admission. Stable. -We will continue patient's Protonix. 6. Substance abuse with cocaine present on admission. Active. -We have requested Social Service consultation. 7. Tobacco use disorder. Present on admission. Active. -We have provided the patient with a nicotine patch. -The patient has been counseled to quit smoking. Disposition: Patient will likely remain here for another 48-72 hours and the cellulitis was worsening this morning and patient will require a few more days of IV antibiotics pending culture results. Will consider infectious disease consultation. Pain Evaluation: Adequate Pain Control GI Prophylaxis: Proton Pump Inhibitor VTE Prophylaxis: Sub-Q Heparin (Unfractionated) VTE Mechanical Devices: Intermittant Pneumatic CD Resuscitation Status: CPR: Attempt Resuscitation Perfecto Rodrigues MD Apr 18, 2017 17:57
--- NOTE | 2017-04-18 18:02 | NUR ---
Pain Managed well with 2 vicodin q4 hours prn. Pt appropriate and compliant with care.
[2017-04-18 20:03] VITALS: BP 91/54; PULSE 77; RESP 17; O2SAT 96
[2017-04-19] MEDS: HYDROcodone-APAP 5-325 mg Tablet PO PRN ×4 (00:22→20:55)
[2017-04-19] MEDS: Heparin 5,000 Unit/mL Inj SUBQ SCH ×3 (00:24→18:16)
--- NOTE | 2017-04-19 02:04 | NUR ---
Restless/Pain Pt reports pain 7/10 to groin, requests saturated gauze dressing be changed, and states multiple times that he would love the ability to smoke a cigarette. PRN vicodin given Q4h, heat pack applied to cellulitis drain area. Pt restless but remains in room through this shift. IV infusing ABX and pt requests disconnected after. Care continues
[2017-04-19 05:13] VITALS: BP 106/69; PULSE 65; RESP 16; O2SAT 97
[2017-04-19 05:59] LABS: BASOPHILS % (AUTO) 0.3 % (0-3); EOSINOPHILS % (AUTO) 3.5 % (0-5); MONOCYTES % (AUTO) 11.7 % (4-12); Mean Corpuscular Hemoglobin 30.2 pg (27.0-35.0); Mean Corpuscular Volume 92.9 fL (81-100); NEUTROPHILS % (AUTO) 53.2 % (40-74); Platelet Count 201 bil/L (150-400)
[2017-04-19 06:24] LABS: Magnesium 1.8 mg/dL (1.6-2.6)
--- NOTE | 2017-04-19 07:58 | PCM.PNSURG ---
Subjective Date of Service: Apr 19, 2017 Date of Service: Apr 19, 2017 Visit Information: Reason for Visit Inguinal Cellulitis Date of Admission: Apr 15, 2017 at 17:45 I incision and drainage of left inguinal abscess 04/18/2017 Subjective: The patient had an I&D in the bed yesterday says the pain is reduced but still present. He states the pain is a 7.5 out of 10 while it was an 8 out of 10 the day prior. He is wondering when he will be discharged but he feels he is not ready to go today. Postop General: No Shortness of Breath, No Chest Pain Gastrointestinal: Tolerating Oral Feedings, No N/V Pain Management: PO Postop Activity: Ambulating Independently Objective Objective Packing of incision was changed today and is healing as expected. Left leg continues to be erythematous approximately shelter down the leg but this area does not appear to be expanding. Tissue is still indurated around I&D site approximately 8 cm. Vital Sign- Last 8 Hours Date Time Temp Pulse Resp B/P Pulse Ox O2 Delivery O2 Flow Rate FiO2 04/19/17 05:13 36.6 65 16 106/69 97 Room Air Intake and Output- Last 8 Hour 04/19/17 Cumulative From/Thru 07:00 04/15/17 12:27 - 04/19/17 05:13 Intake Total 1000 ml 12385 ml Output Total 1100 ml 8525 ml Balance -100 ml 3794 ml Intake Oral 1000 ml 7781 ml IV Total 4538 ml Output Urine Total 1100 ml 8325 ml Emesis 200 ml # Voids 1 # Bowel Movements 0 3 General: Alert, Cooperative, No Acute Distress Lungs: Clear to Auscultation Heart: Regular Rate/Rhythm Extremities: Distal Pulses Palpable, Warm, Thigh&Calf Soft/Nontender, No Cord to Palpation Catheters: None Result Diagram: 04/19/17 0500 04/19/17 0500 Assessment & Plan Impression Primary diagnosis Left inguinal abscess Problems: Plan 1. Acute left inguinal abscess, present on admission, improving. - I&D performed 04/18/2017 - Continue twice-daily changing of bandages - Awaiting culture sensitivities - Day 4 of Ceftriaxone and Vancomycin - Continue antibiotics per Dr. Rodrigues - Nasal MRSA screen was negative Pain Management: Oral analgesic VTE Prophylaxis: Sub-Q Heparin (Unfractionated) Resuscitation Status: CPR: Attempt Resuscitation copies to: Alberta Klein MD, Brook L DO Apr 19, 2017 07:58
[2017-04-19 08:09] VITALS: BP 103/66; PULSE 67; RESP 16; O2SAT 95
[2017-04-19] MEDS: Vancomycin Dose per Pharmacist XX SCH (08:30)
[2017-04-19] MEDS: Pantoprazole 40 mg ER24 Tablet PO SCH ×2 (08:39→20:55)
[2017-04-19] MEDS: MeTOProlol XL 25 mg ER24 Tablet PO SCH (08:40)
[2017-04-19] MEDS: cefTRIAXone Inj 2,000 MG in Dextrose 5% Minibag Plus 50 ML IV SCH (08:40)
[2017-04-19] MEDS: Fluticasone-Salmererol 250-50 Inhaler INHALATION SCH ×2 (08:41→20:56)
[2017-04-19] MEDS: Tiotropium 18mcg/Cap 5 Capsule Inhaler Kit INHALATION SCH (08:41)
[2017-04-19] MEDS ORDERED: 0.9% Sodium Chloride 100 ML ONE ×2 (08:43→18:08)
[2017-04-19] MEDS: Vancomycin Inj 1,500 MG in 0.9% Sodium Chloride 500 ML IV SCH (10:11)
--- NOTE | 2017-04-19 11:34 | NUR ---
Social Work- Continued D/C Planning/ Multi-Disciplinary Rounds Data: EMR reviewed. Pt is on day 4 of hospitalization for inguinal cellulitis. Per multi-disciplinary rounds, ID is following pt. Awaiting culture sensitivities. Pt is living in his car at this time and has financial concerns related to prescriptions. SW will check his Rx prior to discharge. Pt continues to call [facility] for his bed date. SW spoke with pt regarding resources in the community. Pt is knowledgeable about housing services and food assistance in [facility]. For this reason, pt declined any additional resource information. Pt is agreeable to discharging back to his car. SW will continue to follow. Assessment: Pt who is independent at baseline and who resides in his car. Plan: SW will run pt's prescription prior to discharge to address financial barriers. Pt is knowledgeable about housing services and food assistance in [facility]. For this reason, pt declined any additional resource information. Pt is agreeable to discharging back to his car. SW will continue to follow. MORGAN Barakat
[2017-04-19 12:29] VITALS: BP 123/77; PULSE 82; RESP 16; O2SAT 97
--- NOTE | 2017-04-19 13:58 | PCM.PNMED ---
Subjective Date of Service Apr 19, 2017 Subjective The patient is feeling a little bit better but still has pain in his left groin. He is very anxious to have a cigarette. He has no other new complaints. Exam Vital Signs Vital Sign - Last Date Time Temp Pulse Resp B/P Pulse Ox O2 Delivery O2 Flow Rate FiO2 04/19/17 12:29 36.4 82 16 123/77 97 Room Air Intake and Output 04/18/17 04/18/17 04/19/17 Cumulative From/Thru 15:00 23:00 07:00 04/15/17 12:27 - 04/19/17 05:13 Intake Total 1419 ml 1000 ml 14875 ml Output Total 2150 ml 1100 ml 8525 ml Balance -731 ml -100 ml 3794 ml Intake Oral 686 ml 1000 ml 7781 ml IV Total 733 ml 4538 ml Output Urine Total 2150 ml 1100 ml 8325 ml Emesis 200 ml # Voids 1 # Bowel Movements 0 0 3 Exam General: Patient is lying in bed in less distress again today now that he has had the left inguinal abscess incised and drained yesterday. He is more comfortable today. HEENT: Head is atraumatic and normocephalic. Eyes: Pupils are equally round and reactive to light and accommodation. Extraocular muscles are intact. Sclera are white, anicteric. Subconjunctival mucosa is pink. Ears and nose are unremarkable. Oropharynx: There are no mucosal lesions, there is no thrush , there is no pharyngitis. Neck: Is supple, there are no nodes, or masses or tenderness. Chest: Is clear to auscultation and percussion. There are no rales, rhonchi, wheezes or rubs. Heart: Rate, rhythm is regular. There is no murmur, rub or gallop. Abdomen: Good bowel sounds are present. Abdomen is soft, nontender, no organomegaly or masses were appreciated. Extremities: The previous area of fluctuant mass has been incised and drained and there is a dressing which is intact over this area. The dressing is soaked with serosanguineous drainage. The area of cellulitis has significantly improved today. The small abscess/infection on the left thumb and right middle finger have improved slightly. Neurologic: There are no focal neurological deficits. Cranial nerves II through XII are intact. There are no sensory or motor deficits. Psychiatric: Patients mood is calm and shows no sign of agitation. However, he states that even though he has a nicotine patch is anxious to have a cigarette. Genital: Deferred Rectal: Deferred Lab and Diagnostics Result Diagram: 04/19/17 05004/19/17 050 Microbiology Urine and blood cultures are negative to date. A wound culture was obtained today and is pending. Name: ANDREW HEIN Age/Sex: 51/M Attend Dr: Perfecto Rodrigues Acct: [id number] Unit: [id number] Status: ADM IN [place] [facility] [place] Re04/15/17 Disch: Specimen: [id number] Collected: 04/16/17 Status: COMP Req#: [id number] Received: 04/17/17 Source: STOOL Sp Desc : Subm Dr: Idania Mallory MD Ordered: Trena PACHECO DNA PCR Comments: Collected by Nurse/Unit? Y/N Y Procedure Result Verified Site Microbiology SEGUNDO C DIF PCR STOOL Final 04/17/17-649 CDIF DNA BY PCR NEGATIVE REFERENCE INTERVAL NEGATIVE Name: ANDREW HEIN Age/Sex: 51/M Attend Dr: Idania Mallory Acct: [id number] Unit: [id number] Status: ADM IN Location: [facility] [place] 1006-1 Re04/15/17 Disch: Specimen: [id number] Collected: 04/15/17 Status: PARVIZ Walker#: [id number] Received: 04/15/17 Source: NOSE Sp Desc : Subm Dr: Idania Mallory MD Ordered: SEGUNDO MRSA PCR Comments: Collected by Nurse/Unit? Y/N Y Procedure Result Verified Site Microbiology SEGUNDO MRSA PCR Final 04/15/17 MRSA BY PCR NOT DETECTED REFERENCE INTERVAL NOT DETECTED X-Rays, CTs and MRIs PROCEDURE: X-RAY CHEST ONE VIEW, PORTABLE ([id number]) INDICATIONS: fever TECHNIQUE: One view of the chest was acquired. COMPARISON: [facility], , CHEST 1VW (PORTABLE), 04/30/2014, 11:51. FINDINGS: Surgical changes and devices: Postoperative changes are present involving the lower cervical spine. Lungs and pleura: No pleural effusions or pneumothorax. Lungs are clear. Mediastinum: Mediastinal contours appear normal. Heart size is normal. Bones and chest wall: No suspicious bony lesions. Overlying soft tissues appear unremarkable. IMPRESSION: Negative chest. No acute cardiopulmonary process is evident. Dictated by: Saravanan Rosdao M.D. on 04/15/2017 at 14:53 Approved by: Saravanan Rosado M.D. on 04/15/2017 at 15:05 Assessment & Plan The patient is a 51-year-old homeless white male who has been sleeping in his automobile when he noticed in 1 day redness and swelling developing on his left thumb, right middle finger and left inguinal area. He denied any trauma to these areas and denies using intravenous drugs. He does admit to using and abusing cocaine which may or may not have methamphetamine cut into it. He also does admit to having a history of MRSA. Patient developed fever and chills the day of admission which developed in less than one day, as he states he felt fine the day prior to admission. Patient was evaluated in the emergency room where an ultrasound guided needle aspiration was attempted but was unsuccessful. The patient was then admitted to the hospitalist service for further evaluation and treatment. 1. Acute cellulitis with abscess, left inguinal area, present on admission. Cellulitis was worsening prior to incision and drainage of abscess. -We will continue Vancomycin (day 4) pending culture results as patient has a history of MRSA, and ceftriaxone (day 3) -Patient's nasal MRSA screen was negative. However, due to the history of MRSA , as well as left thumb and right middle finger infection, we will continue vancomycin pending I&D and culture results. -I have consulted Dr. Kale Carson general surgery. Surgical PA Ramiro Becker was kind enough to see the patient and perform an incision and drainage on 2016 with irrigation of the wound. Cultures were obtained and are pending. -The wound care team saw the patient and irrigated the wound is well. -Blood cultures are pending. -I have consulted Dr. Jose A Zuleta of infectious disease for his recommendations. 2. Chronic obstructive pulmonary disease present on admission. Stable. -Continue with patient's home medication and monitor closely. 3. Hypertension, present on admission. Stable. -Continue with patient's metoprolol succinate and prazosin. 4. Coronary artery disease. Present on admission. Stable. -We will continue with patient's metoprolol and Lipitor, p.r.n. nitroglycerin, and prazosin. 5. Gastroesophageal reflux disease present on admission. Stable. -We will continue patient's Protonix. 6. Substance abuse with cocaine present on admission. Active. -We have requested Social Service consultation. 7. Tobacco use disorder. Present on admission. Active. -We have provided the patient with a nicotine patch. -The patient has been counseled to quit smoking. Disposition: Patient will likely remain here for another 48 hours as the cellulitis was worsening prior to incision and drainage of his abscess on 2016, and patient will require a few more days of IV antibiotics pending culture results. Will consider infectious disease consultation. Pain Evaluation: Adequate Pain Control GI Prophylaxis: Proton Pump Inhibitor VTE Prophylaxis: Sub-Q Heparin (Unfractionated) VTE Mechanical Devices: Intermittant Pneumatic CD Resuscitation Status: CPR: Attempt Resuscitation Perfecto Rodrigues MD Apr 19, 2017 13:58
[2017-04-19] MEDS ORDERED: Magnesium Sulf 2 Gm/50mL Water 2 GM in IV Premix 1 EACH IV ONE (15:15)
--- NOTE | 2017-04-19 15:58 | CONS ---
[address] [address] CONSULTATION REPORT PATIENT: ANDREW HEIN : 1965 MR#: [id number] ADMIT: 04/15/2017 JOB ID: [id number] DATE OF SERVICE: 04/19/2017 INFECTIOUS DISEASE CONSULTATION: I thank Dr. Antoine Rodrigues for this consult. REASON FOR CONSULTATION: Severe left lower extremity infection. 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 He was in his usual state of health and working at the [employer] set up on April 15, when he noticed the acute onset of pain in his left groin and the upper left anterior thigh just below the groin. This pain rapidly intensified and so by late in the afternoon he could not stand to even walk on his leg anymore and he presented to Urgent Care. By that time, he had developed fevers, chills, severe headache, nausea, generalized weakness and malaise. He was admitted and placed on appropriate antibiotics. An ID consultation is requested today as he has not improved a great deal after three days of intravenous antibiotics and there is concern about possible need for surgical drainage. The patient has had prior history of soft tissue infections in the past including reportedly MRSA infection, though we do not have records of that in our computer. His past medical history is fairly straightforward and includes: 1. COPD. 2. Back pain. 3. Hypertension. 4. Possible coronary artery disease. MEDICATIONS: His current meds include: Ventolin, Combivent, Breo inhaler, Lipitor, metoprolol, Prazosin and the PPI. ALLERGIES: He has no known allergies to medications. SOCIAL HISTORY: The patient lives in his car, smokes cigarettes on an ongoing basis. Does not drink alcohol and sometimes inhales or smokes cocaine. He had stopped for a while and now is back to smoking cocaine. He does not ever inject drugs and denies history of hepatitis C. FAMILY HISTORY: Negative for tuberculosis but interestingly the patient himself was diagnosed in the distant past with latent TB and took nine months of INH. Both his parents did have myocardial infarctions. REVIEW OF SYSTEMS: Was done. The patient did have very significant headache, but it is now down to a very manageable low level. He denies any visual change. No sore throat. He has not had any stiff neck. He did have considerable dry cough when this whole episode started and that has basically resolved at this point. He has some baseline minimal shortness of breath because of COPD. No nausea, vomiting or diarrhea at this time though he did have nausea early on with this illness. He has not noticed any swollen or tender joints. He has not had a skin rash except the one in the left groin which is the one that led him to evaluation and admission here. No swelling in the lower extremities. No focal neurologic complaints. The remainder the review of systems is negative. PHYSICAL EXAMINATION: Reveals a well-developed, well-nourished gentleman who appears about his stated age of 51. He is afebrile. Temperature 36.4, pulse 82, respiratory rate 18, blood pressure 123/77. He is saturating well on room air. He is in no acute distress at this point. Mental status clear. Head without trauma. Eyes without conjunctivitis. Oral cavity: No thrush or hairy leukoplakia. His neck is completely supple. Lungs are clear. No crackles or rhonchi are heard. Cardiac tones regular rate and rhythm without notable murmur. Abdomen soft, nontender. No hepatosplenomegaly. No ascites. No suprapubic fullness. He does not have a Neal catheter. Penis and scrotum are normal. His left groin is remarkable for about a 5 x 2 rather indurated swollen area which may represent a collection of lymph nodes just below the inguinal fold. This area is intensely erythematous and tender. Spreading inferiorly from this focal mass of inflammation is a diffuse cellulitis which goes about longterm down the calf anteriorly. The remainder of the lower extremities is unremarkable and without cellulitis, edema or any evidence of synovitis. Neurologically the patient is completely intact. LABORATORIES: Include a white count which was as high as 11,500. It is now normal at 5800. His creatinine is 0.8. His LFTs are normal. Procalcitonin 0. Urinalysis 6-10 white cells. Blood cultures, urine culture, C difficile, PCR, MRSA PCR all negative. The culture obtained yesterday of the abscess fluid has few polys and no organisms are seen. IMAGING: Includes a chest x-ray done on admission, which was clear. An ultrasound of this inguinal abnormality was just ordered and is pending. IMPRESSION: This patient has a classic left lower extremity infection which I think comprises a series of lymph nodes that are swollen and tender in the left inguinal area with extension down the thigh inferiorly from there. This is likely Staph, strep or a combination. The patient does have a distant history of MRSA even though his nasal smear is negative at this point, and certainly MRSA cannot be excluded, though I think it is fairly unlikely. I agree with the plans to image this and I discussed these plans at the bedside with the wound management team and in the wen with Dr. Rodrigues earlier today. I think the choice to change to daptomycin is warranted as this may lead to slightly more rapid improvement than would vancomycin and the patient's antibiotic regimen can be simplified considerably from the vanc, ceftriaxone he is currently receiving with less risk of toxicity. RECOMMENDATIONS: 1. I agree with the ultrasound. 2. I will check an ASO titer. 3. I will start the patient on daptomycin. 4. Will check hep C and HIV. Note that smoking cocaine is a powerful risk factor for hepatitis C. 5. Daptomycin will be started. 6. Will continue to follow this patient with you. Should the ultrasound demonstrate fluctuance, then surgery would need to be reinvolved to perform an I and D.
[2017-04-19] MEDS ORDERED: DAPTOmycin Inj 500 MG in 0.9% Sodium Chloride 50 ML IV SCH (16:00)
--- NOTE | 2017-04-19 16:19 | NUR ---
Pain Patient reported 10/10 pain at abscess site. 2 tab Erie given. Denies nausea at this time. Patient independent in room. Call light and tray table within reach. Will continue to monitor patient hourly.
[2017-04-19 16:34] VITALS: BP 98/60; PULSE 80; RESP 16; O2SAT 95
--- NOTE | 2017-04-19 16:37 | DRSVH ---
PROCEDURE: US EXTREMITY SONOGRAM LIMITED ([id number]) INDICATIONS: Left leg abscess TECHNIQUE: Real-time scanning was performed of the left groin, with image documentation. COMPARISON: None. FINDINGS: Marked subcutaneous edema and hyperemia is present within the soft tissues of the left groi n. There is no discrete fluid collection to suggest abscess or hematoma. IMPRESSION: Findings suspicious for cellulitis of the left groin. No abscess amenable to percutaneous drainage. Dictated by: Rona Drake M.D. on 04/19/2017 at 16:35 Approved by: Rona Drake M.D. on 04/19/2017 at 16:36
--- NOTE | 2017-04-19 16:41 | NUR ---
Wound note Patient seen at bedside today for left groin wound care, wound is significantly more indurated today than yesterday, able to express small amount of thin tannish pus, erythema is unchanged from yesterday. Patient continues to complain of pain, 07/19.Discussed case with Dr Zuleta and ultrasound was ordered to rule out any deeper abscess. Recommend dry gauze dressings at this time and continue with hot compresses on the hour. WS to follow up tomorrow to reassess.
[2017-04-19] MEDS ORDERED: Acetaminophen IV 1,000 MG in IV Premix 1 EACH IV ONE (19:30)
[2017-04-19 20:20] VITALS: BP 130/78; PULSE 80; RESP 17; O2SAT 98
[2017-04-20] MEDS: HYDROcodone-APAP 5-325 mg Tablet PO PRN ×2 (00:48→04:52)
[2017-04-20] MEDS: Heparin 5,000 Unit/mL Inj SUBQ SCH ×2 (00:50→08:42)
[2017-04-20 05:39] LABS: BASOPHILS % (AUTO) 0.5 % (0-3); EOSINOPHILS % (AUTO) 4.5 % (0-5); MONOCYTES % (AUTO) 11.7 % (4-12); Mean Corpuscular Hemoglobin 30.6 pg (27.0-35.0); NEUTROPHILS % (AUTO) 51.5 % (40-74); Platelet Count 231 bil/L (150-400)
[2017-04-20 05:42] VITALS: BP 111/73; PULSE 66; RESP 17; O2SAT 97
--- NOTE | 2017-04-20 06:01 | NUR ---
Pain/Activity inrease in activity due to pt going outside of hospital to smoke. MD aware and tox screen complete, no evidence of drug use. No smoking on campus is enforced and pt is willingly to comply. Fresh nicotene patch applied. New IV initiated on Left hand. Pt medicated with norco and one dose of IV apap for pain. Pt wishes to discharge on 04/20, he is aware that several day of IV abx are required to clear this infection. Care continues
[2017-04-20] MEDS: Fluticasone-Salmererol 250-50 Inhaler INHALATION SCH (08:41)
[2017-04-20] MEDS: Tiotropium 18mcg/Cap 5 Capsule Inhaler Kit INHALATION SCH (08:41)
[2017-04-20] MEDS: Pantoprazole 40 mg ER24 Tablet PO SCH (08:42)
[2017-04-20] MEDS: MeTOProlol XL 25 mg ER24 Tablet PO SCH (08:43)
--- NOTE | 2017-04-20 10:26 | PCM.PNSURG ---
Subjective Date of Service: Apr 20, 2017 Date of Service: Apr 20, 2017 Visit Information: Reason for Visit Inguinal Cellulitis Surgery/Surgery Date Date of Admission: Apr 15, 2017 at 17:45 Hospital Day #6 Incision and drainage of left inguinal abscess 04/18/2017 Subjective: Patient continues a pain although this has decreased since yesterday. He is anxious to leave because he would like to smoke a cigarette. He left last night to the front doors smoked a cigarette. He had a drug tox screen after this episode last night which was negative. Postop General: No Shortness of Breath, No Chest Pain Gastrointestinal: Good Appetite, No N/V Pain Management: PO Postop Activity: Ambulating Independently Objective Objective The wound of the left leg still appears to be indurated but less so than yesterday. The erythema extending down the left leg slowly regressing. Culture of the abscess is growing MRSA. Vital Sign- Last 8 Hours Date Time Temp Pulse Resp B/P Pulse Ox O2 Delivery O2 Flow Rate FiO2 04/20/17 05:42 36.3 66 17 111/73 97 Room Air Intake and Output- Last 8 Hour 04/20/17 Cumulative From/Thru 06:59 04/15/17 12:27 - 04/20/17 05:42 Intake Total 818 ml 08687 ml Output Total 850 ml 08949 ml Balance -32 ml 5177 ml Intake Oral 818 ml 63818 ml IV Total 5230 ml Output Urine Total 850 ml 9925 ml Emesis 200 ml # Voids 2 # Bowel Movements 0 3 General: Alert, Cooperative, No Acute Distress Lungs: Clear to Auscultation Heart: Regular Rate/Rhythm Abdomen: Soft, Non-tender, Non-distended Extremities: Distal Pulses Palpable, Warm, Thigh&Calf Soft/Nontender Neuro: Cranial Nerves 2-12 nl, Normal Speech Catheters: None Result Diagram: 04/20/17 0453 04/20/17 0453 Lab & Micro Results: Laboratory Tests Test 04/19/17 17:35 04/20/17 04:53 Urine Opiates Screen Negative Urine Methadone Screen Negative Urine Barbiturates Screen Negative Urine Amphetamines Screen Negative Urine Benzodiazepines Screen Negative Urine Cocaine Metabolite Screen Negative Urine Cannabinoids Screen Negative White Blood Count 6.2th/mm3 (3.8-10.1) Red Blood Count 4.35mil/mm3 (4.40-5.80) Hemoglobin 13.3g/dL (13.8-17.2) Hematocrit 40.0% (41.0-50.0) Mean Corpuscular Volume 92.0fL (81-100) Mean Corpuscular Hemoglobin 30.6pg (27.0-35.0) Mean Corpuscular Hemoglobin Concent 33.3% (32.0-37.0) Red Cell Distribution Width 13.2% (12.3-15.4) Platelet Count 231bil/L (150-400) Neutrophils (%) (Auto) 51.5% (40-74) Lymphocytes (%) (Auto) 31.6% (14-46) Monocytes (%) (Auto) 11.7% (4-12) Eosinophils (%) (Auto) 4.5% (0-5) Basophils (%) (Auto) 0.5% (0-3) Hematology Comments Sodium Level 139mEq/L (134-144) Potassium Level 4.2mEq/L (3.5-5.2) Chloride Level 101mEq/L (97-108) Carbon Dioxide Level 24mmol/L (18-29) Blood Urea Nitrogen 15mg/dL (6-24) Creatinine 0.81mg/dL (0.76-1.27) Estimat Glomerular Filtration Rate 106mL/min (>59) Glucose Level 102mg/dL (60-99) Calcium Level 9.1mg/dL (8.5-10.1) Magnesium Level 2.0mg/dL (1.6-2.6) Total Bilirubin 0.2mg/dL (0.0-1.2) Aspartate Amino Transf (AST/SGOT) 82U/L (0-50) Alanine Aminotransferase (ALT/SGPT) 82U/L (0-44) Alkaline Phosphatase 91U/L (25-150) Total Protein 5.9g/dL (6.4-8.4) Albumin 3.3g/dL (3.4-5.0) 04/18/17 Culture & Sensitivity - Preliminary, Resulted Methicillin Resistant S Aureus Assessment & Plan Plan Acute left inguinal abscess, present on admission, improving. - I&D performed 04/18/2017 - Continue twice-daily changing of bandages - Awaiting culture sensitivities - 4 days of Ceftriaxone and Vancomycin completed. - Avelox was switched to daptomycin for better coverage of MRSA with decreased toxicity - Continue antibiotics per Dr. Zuleta - Positive abscess culture for MRSA -Nasal MRSA screen was negative VTE Prophylaxis: Sub-Q Heparin (Unfractionated) Resuscitation Status: CPR: Attempt Resuscitation Megha Hogan DO Apr 20, 2017 10:26
[2017-04-20 11:17] VITALS: PULSE 87; RESP 16; O2SAT 96
[2017-04-20] MEDS ORDERED: Oritavancin Diphosphate 400 mg Vial IV ONE (11:50)
[2017-04-20 12:00] VITALS: BP 120/85; PULSE 77; RESP 19; O2SAT 98
--- NOTE | 2017-04-20 12:22 | PROG NOTE ---
[address] [address] PROGRESS NOTE PATIENT: ANDREW HEIN : 1965 MR#: [id number] ADMIT: 04/15/2017 JOB ID: [id number] DATE: 04/20/2017 INFECTIOUS DISEASE FOLLOWUP NOTE: REASON FOR FOLLOWUP: Left anterior thigh abscess with cellulitis. INTERVAL HISTORY: The patient reports he is feeling better. No fevers, chills, or sweats. No cough. No abdominal pain. His groin is better and he is anxious to be discharged. PHYSICAL EXAMINATION: Reveals an afebrile gentleman, temperature 36.3, pulse 87, respiratory rate 16, blood pressure 111/73, saturating well on room air. No acute distress. No skin rash. Lungs are clear. Abdomen benign. The left groin cellulitis is receding and the swollen lymph node in the left groin is also less tender and swollen than it was previously. LABORATORIES: Include a white count today 6200, totally normal diff. Creatinine 0.81. LFTs abnormal; ALT and AST are both 82. Urinalysis: 6-10 white cells. Hep C and HIV and streptozyme are all pending. Culture, though, from the groin has now grown MRSA. This is very susceptible to vancomycin and therefore it is highly likely to be susceptible to oritavancin and dalbavancin. It is also susceptible to clindamycin, which would be another option if oral therapy were desired. IMPRESSION: Left groin MRSA abscess with secondary cellulitis spreading down the leg, now much improved after aggressive gram-positive IV antibiotic therapy. This patient could be treated with oral clindamycin or linezolid and these would be reasonable options, but he lives in a car and sometimes does cocaine. Rather than take a chance on the patient being noncompliant or not adherent or unable to afford the oral therapy, and being readmitted in the next few days, I think it is more reasonable to give a single dose of IV oritavancin and conclude his IV antibiotics. RECOMMENDATIONS: 1. Will write the patient for a single 1200 mg dose of oritavancin. 2. Following the infusion of the oritavancin, the patient can be discharged. 3. He will need some form of followup in the [facility], though was what is not especially onerous, but perhaps he should be seen there on an ongoing basis until there is some healing. 4. We can stop the dalbavancin as we are now treating him with oritavancin. 5. This case was discussed in person with Dr. Rodrigues. 6. ID will go ahead and sign off on this interesting case. Thank you very much.
[2017-04-20] MEDS ORDERED: Oritavancin Diphosphate 1,200 MG in Dextrose 5% 500 ML IV ONE (12:30)
[2017-04-20] MEDS ORDERED: Oritavancin Diphosphate 1,200 MG in Dextrose 5% 1,000 ML IV ONE (12:30)
--- NOTE | 2017-04-20 12:48 | PCM.DIMED ---
Discharge Instructions Date of Service Apr 20, 2017 Dates of Hospitalization Apr 15, 2017 at 17:45 Discharge Diagnosis Discharge Diagnosis Left Inguinal abscess secondary to MRSA with cellulitis of the left thigh Diet Discharge Diet: No restrictions Activity Discharge Activity: No restrictions Call your provider Call your provider for: Fever or Chills, Shortness of breath, Bleeding, Chest pain, Vomitting, Excessive diarrhea, Weakness (unilateral), Other Patient Instructions Patient Instructions Patient needs to return to the wound care clinic for wound care tomorrow. Follow-up Provider: [facility] Follow-up with PCP in: 1 week Provider: Jose A Zuleta MD Follow-up in: 2 weeks Perfecto Rodrigues MD Apr 20, 2017 12:48
[2017-04-20] MEDS ORDERED: HYDR-4003 PO (12:50)
--- NOTE | 2017-04-20 13:30 | NUR ---
Discharge Discharge instructions and prescription given to patient. Patient refused antibiotic (Orbactiv) before discharge. Stated he had a job interview at 3pm and could not wait for medication to run. Charge nurse, Xiao, also explained to him the importance of medication, patient still refused. Verbalized understanding of discharge instructions and denied any further questions. IV D/C'd, intact.
--- NOTE | 2017-04-20 14:14 | NUR ---
Social Work- Multi-Disciplinary Rounds/Unexpected Discharge Data: EMR reviewed. Pt is on day 5 of hospitalization. Pt was to receive one time dose of IV abx in the hospital and then be discharged this evening. The abx needed to run for 3 hours. Pt was not willing to remain hospitalized to complete this abx. RN and fish and wildlife scientific aid explained to pt the importance of this antibiotic. Pt continued to refuse. RN discharged pt with discharge instructions and prescription given to patient. ROBOTICS TECHNICIAN was not notified of discharge prior to pt leaving hospital, no follow up appointments were scheduled. Recommendations for follow up are included in pt's discharge instructions. Per RN note, pt verbalized understanding of discharge instructions and denied any further questions. Assessment: [place] and [place] in his car Plan: Pt was not willing to wait for one time dose of abx to run prior to discharge. Pt discharged back to his car. MORGAN Barakat
--- NOTE | 2017-04-20 23:10 | PCM.PNMED ---
Subjective Date of Service Apr 20, 2017 Subjective Patient very much wanted to go home during my visit explained to him that I would discuss his case with Dr. Zuleta. After discussing the case with Dr. Zuleta I explained to him that he would be getting one more antibiotic IV and once he gets that antibiotic IV antibiotic would last 2 weeks, and after that infusion he can go home.however apparently before the other buttock could be mixed and given to him he insisted on leaving AGAINST MEDICAL ADVICE prior to getting the antibiotic which was already mixed and on the floor. Despite all efforts to convince him to stay by the nursing staff the patient stated that he had a job interview and left the hospital AGAINST MEDICAL ADVICE. Exam Vital Signs Vital Sign - Last Date Time Temp Pulse Resp B/P Pulse Ox O2 Delivery O2 Flow Rate FiO2 04/20/17 12:00 36.9 77 19 120/85 98 Room Air Intake and Output 04/19/17 04/19/17 04/20/17 Cumulative From/Thru 15:00 23:00 07:00 04/15/17 12:27 - 04/20/17 05:42 Intake Total 668 ml 1497 ml 818 ml 29885 ml Output Total 750 ml 850 ml 20362 ml Balance 668 ml 747 ml -32 ml 5177 ml Intake Oral 1473 ml 818 ml 16183 ml IV Total 668 ml 24 ml 5230 ml Output Urine Total 750 ml 850 ml 9925 ml Emesis 200 ml # Voids 1 2 # Bowel Movements 0 3 Exam General: Patient is lying in bed in less distress again today now that he has had the left inguinal abscess incised and drained yesterday. He is more comfortable today. HEENT: Head is atraumatic and normocephalic. Eyes: Pupils are equally round and reactive to light and accommodation. Extraocular muscles are intact. Sclera are white, anicteric. Subconjunctival mucosa is pink. Ears and nose are unremarkable. Oropharynx: There are no mucosal lesions, there is no thrush , there is no pharyngitis. Neck: Is supple, there are no nodes, or masses or tenderness. Chest: Is clear to auscultation and percussion. There are no rales, rhonchi, wheezes or rubs. Heart: Rate, rhythm is regular. There is no murmur, rub or gallop. Abdomen: Good bowel sounds are present. Abdomen is soft, nontender, no organomegaly or masses were appreciated. Extremities: The previous area of fluctuant mass has been incised and drained and there is packing in the wound. The dressing is soaked with serosanguineous drainage. The area of cellulitis has significantly improved againtoday. The small abscess/infection on the left thumb and right middle finger have improved. Neurologic: There are no focal neurological deficits. Cranial nerves II through XII are intact. There are no sensory or motor deficits. Psychiatric: Patients mood is calm and showed no sign of agitation during my visit. however the patient became irrational left AGAINST MEDICAL ADVICE prior to receiving his antibiotic which was mixed and ready to give him and would have lasted 2 weeks. Genital: Deferred Rectal: Deferred Lab and Diagnostics Result Diagram: 04/20/1745204/20/17452 Microbiology Urine and blood cultures are negative to date. A wound culture was obtained today and is pending. Name: ANDREW HEIN Cody Age/Sex: 51/M Attend Dr: Perfecto Rodrigues Acct: [id number] Unit: [id number] Status: ADM IN Location: [facility] [place] 1006-1 Re04/15/17 Disch: Specimen: [id number] Collected: 04/16/17 Status: COMP Re#: [id number] Received: 04/17/17 Source: STOOL Sp Desc : Subm Dr: Idania Mallory MD Ordered: C DIFF DNA PCR Comments: Collected by Nurse/Unit? Y/N Y Procedure Result Verified Site Microbiology SEGUNDO C DIF PCR STOOL Final 04/17/17-0650 CDIF DNA BY PCR NEGATIVE REFERENCE INTERVAL NEGATIVE Name: ANDREW HEIN Age/Sex: 51/M Attend Dr: Idania Mallory Acct: [id number] Unit: [id number] Status: ADM IN Location: [facility] [place] 1006-1 Re04/15/17 Disch: Specimen: [id number] Collected: 04/15/17 Status: COMP Req#: [id number] Received: 04/15/17 Source: NOSE Sp Desc : Subm Dr: Idania Mallory MD Ordered: SEGUNDO MRSA PCR Comments: Collected by Nurse/Unit? Y/N Y Procedure Result Verified Site Microbiology SEGUNDO MRSA PCR Final 04/15/17 MRSA BY PCR NOT DETECTED REFERENCE INTERVAL NOT DETECTED X-Rays, CTs and MRIs PROCEDURE: X-RAY CHEST ONE VIEW, PORTABLE ([id number]) INDICATIONS: fever TECHNIQUE: One view of the chest was acquired. COMPARISON: [facility], CR, CHEST 1VW (PORTABLE), 04/30/2014, 11:51. FINDINGS: Surgical changes and devices: Postoperative changes are present involving the lower cervical spine. Lungs and pleura: No pleural effusions or pneumothorax. Lungs are clear. Mediastinum: Mediastinal contours appear normal. Heart size is normal. Bones and chest wall: No suspicious bony lesions. Overlying soft tissues appear unremarkable. IMPRESSION: Negative chest. No acute cardiopulmonary process is evident. Dictated by: Saravanan Rosado M.D. on 04/15/2017 at 14:53 Approved by: Saravanan Rosado M.D. on 04/15/2017 at 15:05 Assessment & Plan The patient is a 51-year-old homeless white male who has been sleeping in his automobile when he noticed in 1 day redness and swelling developing on his left thumb, right middle finger and left inguinal area. He denied any trauma to these areas and denies using intravenous drugs. He does admit to using and abusing cocaine which may or may not have methamphetamine cut into it. He also does admit to having a history of MRSA. Patient developed fever and chills the day of admission which developed in less than one day, as he states he felt fine the day prior to admission. Patient was evaluated in the emergency room where an ultrasound guided needle aspiration was attempted but was unsuccessful. The patient was then admitted to the hospitalist service for further evaluation and treatment. 1. Acute cellulitis with abscess, left inguinal area, present on admission. Cellulitis was worsening prior to incision and drainage of abscess. -We will continue Vancomycin (day 4) pending culture results as patient has a history of MRSA, and ceftriaxone (day 3) -Patient's nasal MRSA screen was negative. However, due to the history of MRSA , as well as left thumb and right middle finger infection, we will continue vancomycin pending I&D and culture results. -I have consulted Dr. Kale Carson general surgery. Surgical PA Ramiro Becker was kind enough to see the patient and perform an incision and drainage on 2016 with irrigation of the wound. Cultures were obtained and are pending. -The wound care team saw the patient and irrigated the wound is well. -Blood cultures are pending. -I have consulted Dr. Jose A Zuleta of infectious disease for his recommendations. 2. Chronic obstructive pulmonary disease present on admission. Stable. -Continue with patient's home medication and monitor closely. 3. Hypertension, present on admission. Stable. -Continue with patient's metoprolol succinate and prazosin. 4. Coronary artery disease. Present on admission. Stable. -We will continue with patient's metoprolol and Lipitor, p.r.n. nitroglycerin, and prazosin. 5. Gastroesophageal reflux disease present on admission. Stable. -We will continue patient's Protonix. 6. Substance abuse with cocaine present on admission. Active. -We have requested Social Service consultation. 7. Tobacco use disorder. Present on admission. Active. -We have provided the patient with a nicotine patch. -The patient has been counseled to quit smoking. Disposition: the patient ended up leaving AGAINST MEDICAL ADVICE prior to receiving hisIV antibiotic which would have lasted 2 weeks in his system. Pain Evaluation: Adequate Pain Control GI Prophylaxis: Proton Pump Inhibitor VTE Prophylaxis: Sub-Q Heparin (Unfractionated) VTE Mechanical Devices: Intermittant Pneumatic CD Resuscitation Status: CPR: Attempt Resuscitation Perfecto Rodrigues MD Apr 20, 2017 23:10
--- NOTE | 2017-04-20 23:11 | PCM.DC.MED ---
Discharge Summary Date of Service Apr 20, 2017 Dates of Hospitalization Date of Hospital Admission Apr 15, 2017 at 17:45 Date of Discharge: Apr 20, 2017 Providers: Admitting Physician: Idania Mallory MD Primary Care Physician: Varinder Díaz DO Attending Physician: Perfecto Rodrigues MD Diagnosis at Time of Discharge Diagnosis at Time of Discharge Left Inguinal abscess secondary to MRSA with cellulitis of the left thigh Procedures XRay, CTs & MRIs PROCEDURE: X-RAY CHEST ONE VIEW, PORTABLE ([id number]) INDICATIONS: fever TECHNIQUE: One view of the chest was acquired. COMPARISON: [facility], , CHEST 1VW (PORTABLE), 04/30/2014, 11:51. FINDINGS: Surgical changes and devices: Postoperative changes are present involving the lower cervical spine. Lungs and pleura: No pleural effusions or pneumothorax. Lungs are clear. Mediastinum: Mediastinal contours appear normal. Heart size is normal. Bones and chest wall: No suspicious bony lesions. Overlying soft tissues appear unremarkable. IMPRESSION: Negative chest. No acute cardiopulmonary process is evident. Dictated by: Saravanan Rosado M.D. on 04/15/2017 at 14:53 Approved by: Saravanan Rosado M.D. on 04/15/2017 at 15:05 Brief History The patient is a 51-year-old homeless white male who has been sleeping in his automobile when he noticed in 1 day redness and swelling developing on his left thumb, right middle finger and left inguinal area. He denied any trauma to these areas and denies using intravenous drugs. He does admit to using and abusing cocaine which may or may not have methamphetamine cut into it. He also does admit to having a history of MRSA. Patient developed fever and chills the day of admission which developed in less than one day, as he states he felt fine the day prior to admission. Patient was evaluated in the emergency room where an ultrasound guided needle aspiration was attempted but was unsuccessful. The patient was then admitted to the hospitalist service for further evaluation and treatment. Hospital Course The patient is a 51-year-old homeless white male who has been sleeping in his automobile when he noticed in 1 day redness and swelling developing on his left thumb, right middle finger and left inguinal area. He denied any trauma to these areas and denies using intravenous drugs. He does admit to using and abusing cocaine which may or may not have methamphetamine cut into it. He also does admit to having a history of MRSA. Patient developed fever and chills the day of admission which developed in less than one day, as he states he felt fine the day prior to admission. Patient was evaluated in the emergency room where an ultrasound guided needle aspiration was attempted but was unsuccessful. The patient was then admitted to the hospitalist service for further evaluation and treatment. 1. Acute cellulitis with abscess, left inguinal area, present on admission. Cellulitis was worsening prior to incision and drainage of abscess. -We will continue Vancomycin (day 4) pending culture results as patient has a history of MRSA, and ceftriaxone (day 3) -Patient's nasal MRSA screen was negative. However, due to the history of MRSA , as well as left thumb and right middle finger infection, we will continue vancomycin pending I&D and culture results. -I have consulted Dr. Kale Carson general surgery. Surgical PA Ramiro Becker was kind enough to see the patient and perform an incision and drainage on 2016 with irrigation of the wound. Cultures were obtained and are pending. -The wound care team saw the patient and irrigated the wound is well. -Blood cultures are pending. -I have consulted Dr. Jose A Zuleta of infectious disease for his recommendations. 2. Chronic obstructive pulmonary disease present on admission. Stable. -Continue with patient's home medication and monitor closely. 3. Hypertension, present on admission. Stable. -Continue with patient's metoprolol succinate and prazosin. 4. Coronary artery disease. Present on admission. Stable. -We will continue with patient's metoprolol and Lipitor, p.r.n. nitroglycerin, and prazosin. 5. Gastroesophageal reflux disease present on admission. Stable. -We will continue patient's Protonix. 6. Substance abuse with cocaine present on admission. Active. -We have requested Social Service consultation. 7. Tobacco use disorder. Present on admission. Active. -We have provided the patient with a nicotine patch. -The patient has been counseled to quit smoking. Disposition: the patient ended up leaving AGAINST MEDICAL ADVICE prior to receiving hisIV antibiotic which would have lasted 2 weeks in his system. Exam Vital Signs (Last) Date Time Temp Pulse Resp B/P Pulse Ox O2 Delivery O2 Flow Rate FiO2 04/20/17 12:00 36.9 77 19 120/85 98 Room Air Exam See progress note from today. Test 04/15/17 13:13 04/15/17 16:05 04/15/17 17:54 04/18/17 04:52 Hold Purple Top Tube Received (Received) Hold Blue Top Tube Received (Received) Hold [place] Top Tube Received (Received) Lactic Acid Level 0.8mmol/L (0.4-2.0) Urine Color Dark yellow (YELLOW) Urine Appearance Clear (CLEAR,HAZY) Urine pH 6.0 (5.0-8.0) Urine Specific [place] 1.020 (1.003-1.035) Urine Protein Tracemg/dL (NEG,TRACE) Urine Glucose (UA) Negativemg/dL (NEGATIVE) Urine Ketones 15mg/dL (NEGATIVE) Urine Occult Blood Negative (NEGATIVE) Urine Nitrite Negative (NEGATIVE) Urine Bilirubin Negative (NEGATIVE) Urine Urobilinogen 2mg/dL (NORMAL) Urine Leukocyte Esterase Trace (NEGATIVE) Urine RBC 0-2/hpf (0-2) Urine WBC 6-10/hpf (0-5) Urine Epithelial Cells Moderate/hpf (NONE-MOD) Urine Crystals None seen (NONE SEEN) Urine Bacteria Few/hpf (NONE-FEW) Urine Hyaline Casts None/lpf (NONE) Urine Granular Casts None seen (NONE SEEN) Urine Waxy Casts None seen (NONE SEEN) Urine Red Blood Cell Casts None seen (NONE SEEN) Urine White Blood Cell Casts None seen (NONE SEEN) Urine Mucus Present (None Seen) Urine Trichomonas None seen (NONE SEEN) Urine Yeast None (NONE SEEN) Urinalysis Comment None Urine Culture Reflexed Indicated Erythrocyte Sedimentation Rate 31mm/hr (0-30) C-Reactive Protein 5.5mg/dL (0.0-0.5) Procalcitonin 0.04ng/mL (0.00-0.08) Vancomycin Level Trough 12.8mcg/mL Test 04/19/17 17:35 04/20/17 04:53 Urine Opiates Screen Negative Urine Methadone Screen Negative Urine Barbiturates Screen Negative Urine Amphetamines Screen Negative Urine Benzodiazepines Screen Negative Urine Cocaine Metabolite Screen Negative Urine Cannabinoids Screen Negative White Blood Count 6.2th/mm3 (3.8-10.1) Red Blood Count 4.35mil/mm3 (4.40-5.80) Hemoglobin 13.3g/dL (13.8-17.2) Hematocrit 40.0% (41.0-50.0) Mean Corpuscular Volume 92.0fL (81-100) Mean Corpuscular Hemoglobin 30.6pg (27.0-35.0) Mean Corpuscular Hemoglobin Concent 33.3% (32.0-37.0) Red Cell Distribution Width 13.2% (12.3-15.4) Platelet Count 231bil/L (150-400) Neutrophils (%) (Auto) 51.5% (40-74) Lymphocytes (%) (Auto) 31.6% (14-46) Monocytes (%) (Auto) 11.7% (4-12) Eosinophils (%) (Auto) 4.5% (0-5) Basophils (%) (Auto) 0.5% (0-3) Hematology Comments Sodium Level 139mEq/L (134-144) Potassium Level 4.2mEq/L (3.5-5.2) Chloride Level 101mEq/L (97-108) Carbon Dioxide Level 24mmol/L (18-29) Blood Urea Nitrogen 15mg/dL (6-24) Creatinine 0.81mg/dL (0.76-1.27) Estimat Glomerular Filtration Rate 106mL/min (>59) Glucose Level 102mg/dL (60-99) Calcium Level 9.1mg/dL (8.5-10.1) Magnesium Level 2.0mg/dL (1.6-2.6) Total Bilirubin 0.2mg/dL (0.0-1.2) Aspartate Amino Transf (AST/SGOT) 82U/L (0-50) Alanine Aminotransferase (ALT/SGPT) 82U/L (0-44) Alkaline Phosphatase 91U/L (25-150) Total Protein 5.9g/dL (6.4-8.4) Albumin 3.3g/dL (3.4-5.0) Microbiology Results Urine and blood cultures are negative to date. A wound culture was obtained today and is pending. Name: ANDREW HEIN Age/Sex: 51/M Attend Dr: Perfecto Rodrigues Acct: [id number] Unit: [id number] Status: ADM IN Location: [facility] [place] 1006-1 Re04/15/17 Disch: Specimen: [id number] Collected: 04/16/17 Status: COMP Req#: [id number] Received: 04/17/17 Source: STOOL Sp Desc : Subm Dr: Idania Mallory MD Ordered: C DIFF DNA PCR Comments: Collected by Nurse/Unit? Y/N Y Procedure Result Verified Site Microbiology SEGUNDO C DIF PCR STOOL Final 04/17/17 CDIF DNA BY PCR NEGATIVE REFERENCE INTERVAL NEGATIVE Name: HEINANDREW Age/Sex: 51/M Attend Dr: Idania Mallory Acct: [id number] Unit: [id number] Status: ADM IN Location: [facility] [place] 1006-1 Re04/15/17 Disch: Specimen: [id number] Collected: 04/15/17 Status: COMP Req#: [id number] Received: 04/15/17 Source: NOSE Sp Desc : Subm Dr: Idania Mallory MD Ordered: SEGUNDO MRSA PCR Comments: Collected by Nurse/Unit? Y/N Y Procedure Result Verified Site Microbiology SEGUNDO MRSA PCR Final 04/15/17-2237 MRSA BY PCR NOT DETECTED REFERENCE INTERVAL NOT DETECTED Discharge Medications Discharge Medications Albuterol/Ipratropium (Combivent Respimat Inhal [place]) 120 Spr/4 Gm Inhaler 1 PUFF INH QID (Reported) prn also, not more than 6 puffs daily Atorvastatin Calcium (Atorvastatin Calcium) 80 Mg Tablet 80 MG PO DAILY ( Reported) Fluticasone/Vilanterol (Breo Ellipta 100-25 Mcg INH) 1 Each Aer.pow.ba 1 PUFF INHALATION DAILY (Reported) Metoprolol Succinate ER (Metoprolol Succinate ER) 25 Mg Tab.er.24h 12.5 MG PO DAILY (Reported) Pantoprazole DR (Pantoprazole DR) 40 Mg Tablet.dr 40 MG PO BID (Reported) Prazosin (Prazosin) 2 Mg Capsule 2 MG PO DAILY (Reported) Umeclidinium [place] (Incruse Ellipta) 62.5 Mcg/Actuation Blst.w.dev 1 PUFF INHALATION DAILY (Reported) As needed Albuterol Sulfate (Ventolin HFA Inhaler) 200 Puff/18 Gm Inhaler 2 PUFF INH Q4 PRN PRN For Wheezing (Reported) Epinephrine (Epipen 2-Buzz) 0.3 Mg/0.3 Ml Auto.injct 0.3 ML INJ DIRECTED PRN PRN For Anaphyllaxis (Reported) Hydrocodone-Acetaminophen 5-325 mg (Hydrocodone-Acetaminophen 5-325 mg) 1 Each Tablet 1-2 TABLET PO Q4H PRN PRN For Moderate Pain Prescribed by: KENDAL RODRIGUES MD Nitroglycerin SL (Nitroglycerin SL) 0.4 Mg Tab.subl 0.4 MG SL Q5MIN PRN PRN For Chest Pain (Reported) Followup Plan Disposition: The patient left the hospital AGAINST MEDICAL ADVICE prior to receiving his last dose of antibiotic which would have lasted 2 weeks. Discharge Diet: No restrictions Discharge Activity: No restrictions Patient Instructions Patient needs to return to the wound care clinic for wound care tomorrow. Follow-up Provider: [facility] Follow-up with PCP in: 1 week Provider: Jose A Zuleta MD Follow-up in: 2 weeks Time spent Time spent on discharging this patient was greater than 35 minutes, over half of which was involved in counseling and coordination of care. Perfecto Rodrigues MD Apr 20, 2017 23:11
== END 2017-04-20 13:45 | disposition left against medical advice (07) | DRG 364 ==
LOC: SED 12:22 → OBSVTOIN 17:45 → OSC 17:45
PROVIDERS: ADMIT Hospitalist; ATTEND Hospitalist
PROC: 0J9M0ZZ Drainage of Left Upper Leg Subcutaneous Tissue and Fascia, Open Approach (ICD-10-PCS; principal; 2017-04-18)
DX: L03.314 Cellulitis of groin (principal); I10 Essential (primary) hypertension; L02.214 Cutaneous abscess of groin; J44.9 Chronic obstructive pulmonary disease, unspecified; I25.10 Atherosclerotic heart disease of native coronary artery without angina pectoris; F17.210 Nicotine dependence, cigarettes, uncomplicated; K21.9 Gastro-esophageal reflux disease without esophagitis; F14.10 Cocaine abuse, uncomplicated; Z59.0 Homelessness; Z86.14 Personal history of Methicillin resistant Staphylococcus aureus infection; B95.62 Methicillin resistant Staphylococcus aureus infection as the cause of diseases classified elsewhere